=== PATIENT | male | born 1955 | race Caucasian/White ===

== ENCOUNTER 2017-10-11 15:24 | Inpatient (IN) | payer BC ==
[~2017-10-11] VITALS: Ht 180.3 cm; Wt 107.5 kg
[2017-10-11] VITALS (11 sets, daily range): BP systolic 137–224; BP diastolic 64–102; PULSE 60–80; RESP 16–20; TEMP 97.4–98.2; O2SAT 97–100
[~2017-10-11 15:24] MED LIST: HYDR-3366 PO; IBUP1TAB5 PO
[2017-10-11] MEDS ORDERED: SODIUM CHLORIDE 0.9% FLUSH 10 ML FLUSH IVF PRN (15:45)
[2017-10-11] MEDS ORDERED: HEPARIN SODIUM - IV 10,000 UNITS/10 ML VIAL IV ONE (16:15)
[2017-10-11] MEDS ORDERED: NITROGLYCERIN 0.4 MG SL 25 TABS/BTL SL ONE (16:15)
[2017-10-11] MEDS ORDERED: ASPIRIN 81 MG CHEW TAB CHEW ONE (16:15)
--- NOTE | 2017-10-11 16:24 | PD ---
HPI Chief Complaint: STEMI Alert Time Seen by Provider: 15:40 Travel History International Travel<30 days: No Contact w/Intl Traveler<30days: No Traveled to known affect area: No History of Present Illness HPI Patient 61-year-old male with a history of peripheral artery disease hypertension and previous smoking history presents emergency department for evaluation of chest heaviness and discomfort radiating to the back since about 0100 this morning. Patient states been having this intermittently over the past week, he states his been highly positional worsening when he lies down and better when he sits up, he states it started about a 0100 this morning and has not eased up. He states he had a stress test over a year ago which was negative. He is followed by another physician for peripheral artery disease and does have some chronic sciatica in his low back. Takes medication for high blood pressure. He denies any abdominal pain but does endorse some mild nausea , he tried some Benadryl at home that did not relieve his symptoms, also try some Pepcid without relief. PFSH Past Medical History Cancer: No Cardiovascular Problems: No High Cholesterol: Yes Diabetes: No Endocrine: Yes (LOW TESTOSTERONE) Genitourinary: No Hepatitis: No Hiatal Hernia: No Immune Disorder: No Musculoskeletal: No Neurologic: No Psychiatric: Yes (PTSD) Respiratory: No Thyroid Disease: No Past Surgical History Abdominal Surgery: No AICD: No Cardiac Surgery: No Ear Surgery: No Endocrine Surgery: Yes (broken left leg) Eye Surgery: No Genitourinary Surgery: No Gynecologic Surgery: No Joint Replacement: No Oral Surgery: No Pacemaker: No Thoracic Surgery: No Social History Alcohol Use: No Tobacco Use: Yes (1 2PPD) Substance Use: No Allergies-Medications (Allergen,Severity, Reaction): Coded Allergies: duloxetine (Unverified Allergy, Intermediate, hives, 06/07/17) Reported Meds & Prescriptions Reported Meds & Active Scripts Active Reported [place] (Hydrocodone-Acetaminophen) 10-325 Mg Tab 1 Tab PO Q6H PRN Ibuprofen 400 Mg Tab 400 Mg PO Q6H PRN Review of Systems Except as stated in HPI: all other systems reviewed are Neg Physical Exam Narrative GENERAL: Well-developed well-nourished, no obvious distress peer SKIN: Focused skin assessment warm/dry. HEAD: Atraumatic. Normocephalic. EYES: Pupils equal and round. No scleral icterus. No injection or drainage. ENT: No nasal bleeding or discharge. Mucous membranes pink and moist. NECK: Trachea midline. No JVD. CARDIOVASCULAR: Regular rate and rhythm. No murmur appreciated. 2+ bilateral equal pulses in all 4 extremities. RESPIRATORY: No accessory muscle use. Clear to auscultation. Breath sounds equal bilaterally. GASTROINTESTINAL: Abdomen soft, non-tender, nondistended. Hepatic and splenic margins not palpable. MUSCULOSKELETAL: No obvious deformities. No clubbing. No cyanosis. No edema. NEUROLOGICAL: Awake and alert. No obvious cranial nerve deficits. Motor grossly within normal limits. Normal speech. PSYCHIATRIC: Appropriate mood and affect; insight and judgment normal. Data Data Last Documented VS Vital Signs Date Time Temp Pulse Resp B/P (MAP) Pulse Ox O2 Delivery O2 Flow Rate FiO2 10/11/17 16:40 78 20 169/94 (119) 97 Nasal Cannula 2.00 10/11/17 15:30 97.4 Orders Orders Electrocardiogram (10/11/17 15:40) Ckmb (Isoenzyme) Profile (10/11/17 15:40) Complete Blood Count With Diff (10/11/17 15:40) Comprehensive Metabolic Panel (10/11/17 15:40) Magnesium (Mg) (10/11/17 15:40) Prothrombin Time / Inr (Pt) (10/11/17 15:40) Act Partial Throm Time (Ptt) (10/11/17 15:40) Troponin I (10/11/17 15:40) Chest, Single Ap (10/11/17 15:40) Ecg Monitoring (10/11/17 15:40) Iv Access Insert/Monitor (10/11/17 15:40) Oximetry (10/11/17 15:40) Oxygen Administration (10/11/17 15:40) Sodium Chloride 0.9% Flush (Ns Flush) (10/11/17 15:45) Aspirin Chew (Aspirin Chew) (10/11/17 16:15) Resp Oxygen Nasal Cannula (10/11/17 ) Heparin Inj (Heparin Inj) (10/11/17 16:15) Nitroglycerin Sl (Nitrostat Sl) (10/11/17 16:15) I-Stat Profile (10/11/17 15:40) Admit Order (Ed Use Only) (10/11/17 ) Nitroglycerin-D5w 50 Mg/250 Ml (Nitrogly (10/11/17 16:28) Cardiac Catheterization (10/11/17 ) Heparin-Ns/Pf Inj (Heparin-Ns/Pf Inj) (10/11/17 16:51) Midazolam Inj (Versed Inj) (10/11/17 16:51) Fentanyl Inj (Fentanyl Inj) (10/11/17 16:51) Heparin Inj (Heparin Inj) (10/11/17 16:51) Labs Laboratory Tests Test 10/11/17 16:09 White Blood Count 11.9 TH/MM3 Red Blood Count 5.74 MIL/MM3 Hemoglobin 16.6 GM/DL Bedside Hemoglobin 17.0 G/DL Hematocrit 48.8 % Bedside Hematocrit 50.0 % Mean Corpuscular Volume 85.1 FL Mean Corpuscular Hemoglobin 28.9 PG Mean Corpuscular Hemoglobin Concent 33.9 % Red Cell Distribution Width 15.4 % Platelet Count 231 TH/MM3 Mean Platelet Volume 8.6 FL Neutrophils (%) (Auto) 78.6 % Lymphocytes (%) (Auto) 12.3 % Monocytes (%) (Auto) 7.1 % Eosinophils (%) (Auto) 1.2 % Basophils (%) (Auto) 0.8 % Neutrophils # (Auto) 9.3 TH/MM3 Lymphocytes # (Auto) 1.5 TH/MM3 Monocytes # (Auto) 0.8 TH/MM3 Eosinophils # (Auto) 0.1 TH/MM3 Basophils # (Auto) 0.1 TH/MM3 CBC Comment DIFF FINAL Differential Comment Prothrombin Time 10.4 SEC Prothromb Time International Ratio 1.0 RATIO Activated Partial Thromboplast Time 27.1 SEC Bedside Sodium 135 MMOL/L Blood Urea Nitrogen 11 MG/DL Creatinine 1.03 MG/DL Random Glucose 178 MG/DL Total Protein 7.8 GM/DL Albumin 4.0 GM/DL Calcium Level 9.5 MG/DL Magnesium Level 2.3 MG/DL Alkaline Phosphatase 82 U/L Aspartate Amino Transf (AST/SGOT) 47 U/L Alanine Aminotransferase (ALT/SGPT) 70 U/L Total Bilirubin 0.8 MG/DL Sodium Level 135 MEQ/L Potassium Level 4.1 MEQ/L Chloride Level 97 MEQ/L Carbon Dioxide Level 27.5 MEQ/L Bedside Potassium 4.3 MMOL/L Bedside Chloride 97 MMOL/L Anion Gap 11 MEQ/L Bedside Blood Urea Nitrogen 11 MG/DL Bedside Creatinine 0.8 MG/DL Estimat Glomerular Filtration Rate 74 ML/MIN Bedside Glucose 183 MG/DL Total Creatine Kinase 83 U/L Troponin I 0.08 NG/ML [facility] Medical Decision Making Medical Screen Exam Complete: Yes Emergency Medical Condition: Yes Interpretation(s) EKG shows sinus rhythm with normal axis and normal R-wave progression. There are ST segment elevations at least 1 mm in 2 3 and aVF with reciprocal depression in leads V1 and V2 this is consistent with an acute STEMI, there is also some Q waves present in lead III which may represent a resolving [place]. Differential Diagnosis STEMI, and STEMI, ACS, [place], GERD, aortic dissection unlikely. Narrative Course Patient room to the emergency department, EKG was obtained and did show elevation in II ,III and aVF with reciprocal depression in leads V1 and V2 consistent with an inferior [place]. Q waves of artery begun to form in lead III is probable resolving [place] but does meet STEMI criteria. After I reviewed this EKG STEMI I saw the patient and states he was still having intense tightness in the middle of his test. Is not diaphoretic appears fairly comfortable. STEMI alert was called. 1525: Arrival to ER. 1601: Stemi Alert 1602: D/W Anthony->director geophysical laboratory 1603: laborer tanbark enroute. 1610: Ready to roll to director geophysical laboratory, awaiting cath team. 1628: Anthony at bedside. 1634: Patient excorted by me and RN team to director geophysical laboratory. 3 of 4 cath team members present. 1651: Cath team fully assembled. 1658: Anthony in director geophysical laboratory, patient handed off. Patient was given 325 milligrams of aspirin, 5000 units of heparin as is no immediately perceivable contraindications. Cautiously the patient was given sublingual nitroglycerin as this is an inferior [place] with the patient is extremely hypertensive, this seems to be easing his chest discomfort. Diagnosis Primary Impression: STEMI (ST elevation myocardial infarction) Qualified Codes: I21.3 - ST elevation (STEMI) myocardial infarction of unspecified site Admitting Information Admitting Physician Requests: Admit Condition: Ladarius Cruz MD October 11, 2017 16:24
[2017-10-11 16:26] LABS: AUTOMATED NEUTROPHIL # 9.3 TH/MM3 (1.8-7.7); BASOPHIL # 0.1 TH/MM3 (0-0.2); BASOPHIL % 0.8 % (0.0-2.0); EOSINOPHIL # 0.1 TH/MM3 (0-0.4); EOSINOPHIL % 1.2 % (0.0-4.0); HEMATOCRIT 48.8 % (39.0-51.0); HEMOGLOBIN 16.6 GM/DL (13.0-17.0); LYMPH % 12.3 % (9.0-44.0); LYMPHOCYTE # 1.5 TH/MM3 (1.0-4.8); MEAN CELL VOLUME 85.1 FL (80.0-100.0); MEAN CORPUSCULAR HEMOGLOBIN 28.9 PG (27.0-34.0); MEAN CORPUSCULAR HGB CONC 33.9 % (32.0-36.0); MEAN PLATELET VOLUME 8.6 FL (7.0-11.0); MONO % 7.1 % (0.0-8.0); MONOCYTE # 0.8 TH/MM3 (0-0.9); NEUT % 78.6 % (16.0-70.0); PLATELET COUNT 231 TH/MM3 (150-450); RED BLOOD COUNT 5.74 MIL/MM3 (4.50-5.90); RED CELL DISTRIBUTION WIDTH 15.4 % (11.6-17.2); WHITE BLOOD COUNT 11.9 TH/MM3 (4.0-11.0)
--- NOTE | 2017-10-11 16:27 | RADRPT ---
EXAM DATE: 10/11/2017 4:17 PM EDT AGE/SEX: 61 years / Male INDICATIONS: Stemi-alert. CLINICAL DATA: This is the patient's initial encounter. Patient reports that signs and symptoms have been present for 1 day and indicates a pain score of Nonresponsive. MEDICAL/SURGICAL HISTORY: . Unobtainable. . Unobtainable. COMPARISON: [facility] [place], 04/11/[place]. . FINDINGS: A single AP view of the chest demonstrates the lungs to be symmetrically aerated without evidence of mass, infiltrate or effusion. The cardiomediastinal contours are unremarkable. Osseous structures a re intact. CONCLUSION: No acute findings. Minimal basilar atelectasis. Electronically signed by: Austen Simmons MD 10/11/2017 4:26 PM EDT
[2017-10-11] MEDS ORDERED: NITROGLYCERIN-D5W 50 MG/250 ML 250 ML ONE (16:28)
[2017-10-11] MEDS ORDERED: IOHEXOL 350 MG/ML 50 ML BTL (for Cath Lab) OTHER ONE (16:33)
[2017-10-11 16:43] LABS: PROTHROMBIN TIME - PATIENT 10.4 SEC (9.8-11.6)
[2017-10-11 16:45] LABS: AST (GOT) 47 U/L (15-37); BICARBONATE 27.5 MEQ/L (21.0-32.0); BLOOD UREA NITROGEN 11 MG/DL (7-18); CALCIUM 9.5 MG/DL (8.5-10.1); CHLORIDE 97 MEQ/L (98-107); CREATININE 1.03 MG/DL (0.60-1.30); GLOMERULAR FILTRATION RATE 74 ML/MIN (>89); GLUCOSE,RANDOM 178 MG/DL (74-106); MAGNESIUM 2.3 MG/DL (1.5-2.5); SODIUM (NA) 135 MEQ/L (136-145)
[2017-10-11 16:46] LABS: ALT (GPT) 70 U/L (12-78)
[2017-10-11 16:49] LABS: ALKALINE PHOSPHATASE 82 U/L (45-117); TOTAL BILIRUBIN ADULT 0.8 MG/DL (0.2-1.0); TOTAL PROTEIN 7.8 GM/DL (6.4-8.2); TROPONIN I 0.08 NG/ML (0.02-0.05)
[2017-10-11] MEDS ORDERED: HEPARIN-NS/PF INJ 1,000 ML ONE ×2 (16:51→17:22)
[2017-10-11] MEDS ORDERED: MIDAZOLAM HCL 2 MG/2 ML VIAL ONE (16:51)
[2017-10-11] MEDS ORDERED: HEPARIN SODIUM - IV 10,000 UNITS/10 ML VIAL ONE (16:51)
[2017-10-11] MEDS ORDERED: TIROFIBAN INFUSION INJ 250 ML IV ONE (17:07)
[2017-10-11] MEDS ORDERED: CLOPIDOGREL 300 MG TAB ONE (17:08)
[2017-10-11] MEDS ORDERED: PRASUGREL 10 MG TAB ONE (17:12)
[2017-10-11] MEDS: TIROFIBAN INFUSION INJ 250 ML IV SCH (17:14)
[2017-10-11] MEDS ORDERED: NITROGLYCERIN-D5W 50 MG/250 ML 250 ML IV PRN (17:15)
[2017-10-11] MEDS ORDERED: SODIUM CHLORIDE 0.9% FLUSH 10 ML FLUSH IV FLUSH PRN ×2 (17:30→18:30)
[2017-10-11] MEDS ORDERED: BACITRACIN OINT 0.9 GM PKT TOP ONE (17:30)
[2017-10-11] MEDS ORDERED: PRASUGREL 10 MG TAB PO ONE (17:30)
[2017-10-11] MEDS ORDERED: MISC INFORMATION XX ONE (17:30)
--- NOTE | 2017-10-11 17:33 | CATHPROC ---
[employer] HIS Report Study Information Study Number Admission Scheduled Start Study Start [id number] Oct 11 2017 3:24PM 10/11/2017 Oct 11 2017 4:41PM [place] [facility] Cardiac Catheterization Admit Source Facility Department Emergency department [facility] - Painting Instructor Physician and Clinical Staff Initial Konstantin [employer] News Video Editor Marcie Lao,RN Television News Video Editor Divine Carmona,RN Recorder Raysa Camacho,RT(R) Scrub Teresa Scott,DYAN TECH2 Procedures Performed Procedure Location (Site) Vessel Name Coronary Angiograms LCA Left Coronary Coronary Angiograms RCA Right Coronary L Heart Cath Stent RCA Prox Right Coronary Wire insertion Fem Art (right) Femoral Art Equipment Time Mini Bar Attendant Description Size Mfg Part Number Used/Scraped [id number] 17:02 [employer] WIRE, ASAHI PROWATER 180CM 180CM Used *[id number] TRANSDUCER, TRUWAVE [id number] 16:59 m2fx * Used W/STOCKCOCK *[id number] *[id number] *[id number] *[id number] 16:59 MEDLINE INDUSTRIES PACK, CCL CUSTOM * Used *[id number] 16:59 MEDLINE PACER PEN, SKIN DUAL W/ RULER * Used *[id number] 17:04 [employer]IC STENT, 2.5 8 INTEGRITY 2.5 8 Used *[id number] 17:09 [employer]IC STENT, 2.5 8 INTEGRITY 2.5 8 Used *[id number] 17:10 [employer] MEDICAL 30 JERALD INDEFLATOR Used *[id number] 17:04 [employer] MEDICAL SHEATH, FR6.5 PRELUDE 11CM FR 6.5 038ACT Used *[id number] 16:59 [employer] MEDICAL WIRE, 3MMJ .035 180CM 180CM Used *[id number] 16:59 NAMIC MANIFOLD, 4 PORT * Used *[id number] 16:59 [employer] OMNIPAQUE, 350 MG, 150ML 150ML [id number] Used [id number] 16:59 [employer] MEDICAL BLANKET,WARM AIR CCL * Used *[id number] 16:59 [employer] MEDICAL SHEATH, FR4 TERUMO (10CM) FR 4 Used *[id number] Equipment Model, Serial, Lot Number and Expiration Data Description Model Number Serial Number Lot Number Expiration Date STENT, 2.5 8 INTEGRITY [id number] 11-16-2018 History: Current Medications Medication Dosage/Unit Route Frequency Last Date/Time Taken ASA History: Allergies Allergy Reaction Cymbalta hives duloxetine hives History: Stress Tests Stress or Imaging Studies Performed No History: Other Current Smoker Method Yes Cigarettes Labs Hgb (g/dl) Hct (%) 11.60-17.00 35.00-51.00 17.0 50 Glucose (mg/dl) BUN (mg/dl) Creatinine (mg/dl) BUN:Creatinine (1:x) 74.00-106.00 7.00-18.00 0.50-1.30 10.00-20.00 183 11 0.8 13.8 Na (meq/l) K (meq/l) 136.00-145.00 3.50-5.10 135 4.3 Medication Medication Total Dose (Bolus/Oral) Medication Total Dosage/Unit 1% XYLOCAINE 20 mL AGGRASTAT BOLUS 54 mL EFFIENT 60 mg FENTANYL 25 mcg HEPARIN 4000 units VERSED 1 mg Medications (Bolus/Oral) Medication Time Given Dosage/Unit Administered By Reason 1% XYLOCAINE 10/11/2017 4:57:23 PM 20 mL Konstantin Cruz 20 mL 1% XYLOCAINE given in lab by Konstantin Cruz in Right Groin via Subcutaneous. VERSED 10/11/2017 4:57:27 PM 1 mg Patient arrived on 1 mg VERSED via Peripheral IV. FENTANYL 10/11/2017 4:58:29 PM 25 mcg Marcie Lao 25 mcg FENTANYL given in lab by Marcie Lao RN via Peripheral IV. HEPARIN 10/11/2017 5:03:20 PM 2000 units Marcie Lao 2000 units HEPARIN given in lab by Marcie Lao, SON via Peripheral IV. EFFIENT 10/11/2017 5:14:23 PM 60 mg Marcie Lao 60 mg EFFIENT given in lab by Marcie Lao, SON via Oral. AGGRASTAT BOLUS 10/11/2017 5:14:57 PM 54 mL Marcie Lao 54 mL AGGRASTAT BOLUS given in lab by Marcie Lao, SON via Peripheral IV. HEPARIN 10/11/2017 5:16:45 PM 2000 units Marcie Lao 2000 units HEPARIN given in lab by Marcie Lao, SON via Peripheral IV. Medication (Drip) Medication Time Given Dosage/Unit Concentration/Unit Diluent (ml) Solution AGGRASTAT DRIP 10/11/2017 5:18:44 PM 0.148 mcg/kg/min 12.5 mg 250 NaCl .9 0.148 mcg/kg/min AGGRASTAT DRIP given in lab by Marcie Lao, SON via Peripheral IV. Pump/Drip Flow = 19.5 ml/hr using NaCl .9 with a concentration of 12.5 mg in 250 ml. IV Solutions 10/11/2017 4:50:00 PM 0 mL (IV) 500 NaCl .9 Patient arrived on IV Solutions via Peripheral IV. Pump/Drip Flow = 20 ml/hr using NaCl .9. NIPRIDE 10/11/2017 5:21:13 PM 200 mcg 200 mcg NIPRIDE given in lab by Marcie Lao, SON in Right Antecubital via Peripheral IV. NITROGLYCERIN DRIP 10/11/2017 4:49:11 PM 10 mcg/min 50 mg 250 D5W Patient arrived on 10 mcg/min NITROGLYCERIN DRIP in Right Wrist via Peripheral IV. Pump/Drip Flow = 3 ml/hr using D5W with a concentration of 50 mg in 250 ml. NITROGLYCERIN DRIP 10/11/2017 5:10:42 PM 30 mcg/min 50 mg 250 D5W 30 mcg/min NITROGLYCERIN DRIP given in lab by Marcie Lao RN via Peripheral IV. Pump/Drip Flow = 9 ml/hr using D5W with a concentration of 50 mg in 250 ml. Final Case Assessment Cardiovascular HR Rhythm NIBP Chest Pain 69 reg 165/84 5 Edema Present Skin color Skin None Normal Warm Circulatory - Right Pulses Dorsalis Pedis Femoral 1 2 Scale (0,1,2,3,4,d) Circulatory - Left Pulses Dorsalis Pedis Femoral 1 2 Scale (0,1,2,3,4,d) Circulatory - Lower Extremities Color Lower Right Color Lower Left Normal Normal Neurological State Oriented to time-place- Alert Moves all extremities person Respiration - General Respiration Rate SpO2 (%) O2 (lpm) (B/min) 22 97 3 Chronological Log Time Study Chronological Log 16:39:18 Patient arrived directly from ER without notice. 16:41:20 Patient Name, D.O.B, / Armband Verified By R.N. 16:41:20 Consent signed by the physician and the patient and verified by the Painting Instructor staff. 16:41:21 Pre-op and post- op instructions given; patient acknowledges understanding of instructions. 16:41:22 Verbal Stimulation=2 Physical Stimulation=2 Airway=2 Respiration=2 TOTAL=8. (0=absent, 1=li mited, 2=present) Vitals capture started with the following parameters, Patient=Adult, Interval=5 min, Initial Pr asmtng=010 mmHg, 16:46:54 Deflation Rate=5 mmHg, Cuff placed on Right Arm 16:46:58 Presedation assessment performed by Painting Instructor RN. 16:47:34 Patient has been NPO for Less than 6Hrs. 16:47:36 Skin Breakdown-None 16:47:39 HR=61 bpm, KQXU=987/102 mmhg, SpO2=96.0 %, Resp=8 B/min, Pain=10, Prerna=10, Reza=2 16:47:49 Patient Warmer Placed on the Table. 16:47:51 Disposable Defibrillator Pads Placed On Patient. 16:47:52 Luis Prominences Protected 16:47:59 A # 18 IV was noted in the Antecubital (right). Grade = 20 16:48:40 A # 20 IV was noted in the Hand (right). Grade = 0 Patient arrived on 10 mcg/min NITROGLYCERIN DRIP in Right Wrist via Peripheral IV. Pump/Drip Fl ow = 3 ml/hr using 16:49:11 D5W with a concentration of 50 mg in 250 ml. 16:50:00 Patient arrived on IV Solutions via Peripheral IV. Pump/Drip Flow = 20 ml/hr using NaCl .9. 16:53:23 HR=72 bpm, ASSS=587/102 mmhg, SpO2=96.0 %, Resp=10 B/min, Pain=10, Prerna=10, Reza=2 16:55:39 Pressure channel 1 zeroed. 16:56:33 Reference ECG taken 16:56:36 MD arrived. Time Out. Correct patient, correct procedure, correct physician, labs, allergies, and equipment verified with labor economist 16:56:39 team present. Fire risk assesment completed (see hard stop sheet for coding). Time Out Conc urred by MD and individual staff in procedure. 16:57:23 20 mL 1% XYLOCAINE given in lab by Konstantin Cruz in Right Groin via Subcutaneous. 16:57:27 Patient arrived on 1 mg VERSED via Peripheral IV. 16:57:30 Case Start 16:57:43 HR=65 bpm, QJPV=010/83 mmhg, SpO2=96.0 %, Resp=18 B/min, Pain=10, Prerna=10, Reza=2 16:58:29 25 mcg FENTANYL given in lab by Marcie Lao RN via Peripheral IV. 16:58:33 Access site was Right Femoral Artery. 16:58:38 A wire was inserted via Fem Art (right). 16:58:40 A SHEATH, FR4 TERUMO (10CM) FR 4 was advanced into the Fem Art (right) using the Percutaneo us technique. 16:59:03 Activated Clotting Time Drawn A JR 4.0 INFINITI CATHETER FR 4 was advanced over a wire. OMNIPAQUE, 350 MG, 150ML 150ML was us ed for 16:59:50 injections. Recorded Pressure: LV, HR=70, Condition=Condition 1 17:00:10 (Left Ventricle) LV 158/15/20 Recorded Pressure: LV, HR=71, Condition=Condition 1 17:00:17 (Left Ventricle) LV 156/20/23 Recorded Pressure: LV, Ao, HR=72, Condition=Condition 1 17:00:39 (Left Ventricle) LV 152/12/21, (Aorta) Ao 172/90/123 17:01:20 The RCA was injected and visualized at various angles. OMNIPAQUE, 350 MG, 150ML 150ML used . After removing the current catheter a JL 5.0 INFINITI CATHETER FR 4 was advanced over a WIRE, 3 MMJ .035 180CM 17:02:08 180CM. 17:02:41 ACT (Normal Range 90-180) = 192 17:02:42 HR=65 bpm, GWTS=474/88 mmhg, SpO2=94.0 %, Resp=19 B/min, Pain=10, Prerna=10, Reza=2 Recorded Pressure: Ao, HR=68, Condition=Condition 1 17:02:51 (Aorta) Ao 141/75/102 17:03:13 The LCA was injected and visualized at various angles. OMNIPAQUE, 350 MG, 150ML 150ML used . 17:03:20 2000 units HEPARIN given in lab by Marcie Lao RN via Peripheral IV. 17:03:55 Catheter was removed A SHEATH, FR6.5 PRELUDE 11CM FR 6.5 was exchanged in the Fem Art (right). This was necessary in order to 17:04:09 accomodate a larger catheter. A JR 4.0 GUIDE CATHETER FR 6 was advanced over a wire. OMNIPAQUE, 350 MG, 150ML 150ML was used for 17:04:29 injections. 17:06:29 A WIRE, ASAHI PROWATER 180CM 180CM was inserted via Fem Art (right). 17:07:43 HR=69 bpm, ZOWD=244/85 mmhg, SpO2=95.0 %, Resp=40 B/min, Pain=10, Prerna=10, Reza=2 17:08:12 Interventional wire has crossed the lesion An STENT, 2.5 8 INTEGRITY 2.5 8 Bare Metal Stent was inserted through a JR 4.0 GUIDE CATHETER F R 6 over a 17:09:23 WIRE, ASAHI PROWATER 180CM 180CM. A STENT, 2.5 8 INTEGRITY 2.5 8 was deployed using a 30 JERALD INDEFLATOR at 12 atmospheres for 28 seconds in the 17:09:57 RCA Prox. 17:10:18 Delivery device removed 17:10:25 The RCA was injected and visualized at various angles. OMNIPAQUE, 350 MG, 150ML 150ML used . 30 mcg/min NITROGLYCERIN DRIP given in lab by Marcie Lao, RN via Peripheral IV. Pump/Drip Flow = 9 ml/hr 17:10:42 using D5W with a concentration of 50 mg in 250 ml. 17:11:05 Catheter was removed 17:11:19 Activated Clotting Time Drawn 17:12:45 HR=70 bpm, RUBZ=559/84 mmhg, SpO2=95.0 %, Resp=27 B/min, Pain=5, Prerna=10, Reza=2 Assessment: Final Case, HR=69 BPM, Rhythm=reg, EUOY=753/84 mmhg, Chest Pain=5, Edema=None, [place] r=Normal, Skin = Warm Right Pulses: Adan Ped=1, Femoral=2 Left Pulses: Adan Ped=1, Femoral=2 17:13:03 Lower Right Extremities: Color=Normal Lower Left Extremities: Color=Normal Neurological: State=Alert, Ox3, KATZ Respiration: Resp=22 B/min, SpO2=97 %, O2=3 lpm 17:14:16 Catheter(s) removed without difficulty 17:14:18 In the Fem Art (right) the SHEATH, FR6.5 PRELUDE 11CM FR 6.[address] by Konstantin Guerrero. 17:14:23 60 mg EFFIENT given in lab by Marcie Lao, SON via Oral. 17:14:34 Case End 17:14:35 Sterile dressing applied to site 17:14:42 No case complications noted. 17:14:48 Cine recording checked. 17:14:49 Bedside Report will be given. 17:14:57 54 mL AGGRASTAT BOLUS given in lab by Marcie Lao, SON via Peripheral IV. 17:16:15 ACT (Normal Range 90-180) = 208 17:16:45 2000 units HEPARIN given in lab by Marcie Lao, SON via Peripheral IV. 17:17:44 HR=70 bpm, VHZJ=367/76 mmhg, SpO2=96.0 %, Resp=17 B/min, Pain=5, Prerna=10, Reza=2 17:17:56 Verbal Stimulation=2 Physical Stimulation=2 Airway=2 Respiration=2 TOTAL=8. (0=absent, 1=li mited, 2=present) 17:18:05 A Left Heart Cath was performed. 17:18:10 Clinical correlaton risk stratification. 0.148 mcg/kg/min AGGRASTAT DRIP given in lab by Marcie Lao, SON via Peripheral IV. Pump/Dri p Flow = 19.5 17:18:44 ml/hr using NaCl .9 with a concentration of 12.5 mg in 250 ml. 17:21:13 200 mcg NIPRIDE given in lab by Marcie Lao, RN in Right Antecubital via Peripheral IV. 17:22:39 HR=73 bpm, JVDH=296/61 mmhg, SpO2=95.0 %, Resp=16 B/min, Pain=10, Prerna=10, Reza=2 17:27:23 chest pain gone 17:27:33 HR=72 bpm, AWLT=157/87 mmhg, SpO2=93.0 %, Resp=19 B/min, Pain=0, Prerna=10, Reza=2 17:32:05 Vitals capture stopped. End Study - Contrast Media Used In Study Contrast Total Opened (mL) Total Used (mL) Total Wasted (mL) Omnipaque 40 40 0 End Study - Maximum Contrast Load Max Contrast Load (mL) 687.5 End Study - Radiation Exposure Fluoro Time (minutes) 2.5 End Study - Patient Disposition Complications Transferred To Interventional Outcome No Telemetry Bed successful
[2017-10-11] MEDS ORDERED: oxyCODONE/ACETAMINOPHEN 5 MG/325 MG TAB PO PRN (18:30)
[2017-10-11] MEDS ORDERED: SENNOSIDES 8.6 MG TAB PO PRN (18:30)
[2017-10-11] MEDS ORDERED: METOCLOPRAMIDE HCL 10 MG/2 ML VIAL IV PUSH PRN (18:30)
[2017-10-11] MEDS ORDERED: MAGNESIUM HYDROXIDE SUSP 30 ML CUP PO PRN (18:30)
[2017-10-11] MEDS ORDERED: ACETAMINOPHEN 325 MG TAB PO PRN ×2 (18:30)
[2017-10-11] MEDS ORDERED: NALOXONE HCL 0.4 MG/ML AMP IV PUSH PRN (18:30)
[2017-10-11] MEDS ORDERED: BISACODYL 10 MG SUPP RECTAL PRN (18:30)
[2017-10-11] MEDS ORDERED: LACTULOSE SYRUP 20 GM/30 ML CUP PO PRN (18:30)
--- NOTE | 2017-10-11 18:33 | PD.CONS ---
HPI Service [facility] Consult Requested By Dr. Konstantin Mccollum MD Reason for Consult Medical management post STEMI Primary Care Physician Brian Browning MD Diagnoses: History of Present Illness Patient is a 61-year-old male who presented to the emergency department with chest pain. Was found to have a ST elevation AR and was taken to the cardiac Manager Customer Service by Dr. Cruz had a bare-metal stent placed in his proximal RCA. We have now been asked to help with his medical management. Patient has a history of peripheral art arterial disease followed by Dr. Landon as well as cervical and lumbar disease followed by Dr. Felipe. Has chronic pain medications that are followed by Dr. Browning Review of Systems Constitutional: DENIES: Diaphoretic episodes, Fatigue, Fever, Weight gain, Weight loss, Chills, Dizziness, Change in appetite, Night Sweats Endocrine: DENIES: Heat/cold intolerance, Polydipsia, Polyuria, Polyphagia Eyes: DENIES: Blurred vision, Diplopia, Eye inflammation, Eye pain, Vision loss , Photosensitivity, Double Vision Ears, nose, mouth, throat: DENIES: Tinnitus, Hearing loss, Vertigo, Nasal discharge, Oral lesions, Throat pain, Hoarseness, Ear Pain, Running Nose Respiratory: DENIES: Apneas, Cough, Snoring, Wheezing, Hemoptysis, Sputum production, Shortness of breath Cardiovascular: COMPLAINS OF: Chest pain, Dyspnea on Exertion, Claudication, DENIES: Palpitations, Syncope, PND, Lower Extremity Edema, Orthopnea Gastrointestinal: DENIES: Abdominal pain, Black stools, Bloody stools, Constipation, Diarrhea, Nausea Genitourinary: DENIES: Sexual dysfunction, Urinary frequency, Urinary incontinence Musculoskeletal: COMPLAINS OF: Joint pain, Back pain, Neck pain, DENIES: Muscle aches, Stiffness, Joint Swelling Integumentary: DENIES: Abnormal pigmentation, Nail changes, Pruritus, Rash Hematologic/lymphatic: DENIES: Bruising, Lymphadenopathy Immunologic/allergic: DENIES: Eczema, Urticaria Neurologic: COMPLAINS OF: Abnormal gait, DENIES: Headache, Localized weakness, Paresthesias, Seizures, Speech Problems, Tremor, Poor Balance Psychiatric: DENIES: Anxiety, Confusion, Mood changes, Depression, Hallucinations, Agitation, Suicidal Ideation, Homicidal Ideation, Delusions Except as stated in HPI: all other systems reviewed are Neg Past Family Social History Allergies: Coded Allergies: duloxetine (Unverified Allergy, Intermediate, hives, 06/07/17) Past Medical History Chronic back pain and chronic neck pain Peripheral arterial disease in bilateral lower extremities followed by Dr. Landon History of extensive tobacco abuse quit in 2017 Hypertension Past Surgical History The cardiac catheterization and stent placement Reported Medications Reported Meds & Active Scripts Active Reported [place] (Hydrocodone-Acetaminophen) 10-325 Mg Tab 1 Tab PO Q6H PRN Ibuprofen 400 Mg Tab 400 Mg PO Q6H PRN Active Ordered Medications Current Medications Sodium Chloride (NS Flush) 2 ml UNSCH PRN IVF FLUSH AFTER USING IV ACCESS Last administered on 10/11/17 16:08; Start 10/11/17 at 15:45; Stop 10/11/17 at 17:32 ; Status DC Aspirin (Aspirin Chew) 324 mg ONCE ONCE CHEW Last administered on 10/11/17at 16 :07; Start 10/11/17 at 16:15; Stop 10/11/17 at 16:16; Status DC Heparin Sodium (Porcine) (Heparin Inj) 5,000 units ONCE ONCE IV Last administered on 10/11/17at 16:08; Start 10/11/17 at 16:15; Stop 10/11/17 at 16:16 ; Status DC Nitroglycerin (Nitrostat Sl) 0.4 mg ONCE ONCE SL Last administered on at 16:09; Start 10/11/17 at 16:15; Stop 10/11/17 at 16:16; Status DC Nitroglycerin/ Dextrose 250 ml @ As Directed STK-MED ONCE .ROUTE ; Start at 16:28; Stop 10/11/17 at 16:29; Status DC Heparin Sodium/ Sodium Chloride 1,000 ml @ As Directed STK-MED ONCE .ROUTE Last administered on 10/11/17at 16:51; Start 10/11/17 at 16:51; Stop 10/11/17 at 16:52; Status DC Midazolam HCl (Versed Inj) 2 mg STK-MED ONCE .ROUTE Last administered on at 16:57; Start 10/11/17 at 16:51; Stop 10/11/17 at 16:52; Status DC Fentanyl Citrate (fentaNYL INJ) 100 mcg STK-MED ONCE .ROUTE Last administered on 10/11/17at 16:51; Start 10/11/17 at 16:51; Stop 10/11/17 at 16:52; Status DC Heparin Sodium (Porcine) (Heparin Inj) 10,000 units STK-MED ONCE .ROUTE Last administered on 10/11/17at 16:51; Start 10/11/17 at 16:51; Stop 10/11/17 at 16:52 ; Status DC Tirofiban/Sodium Chloride 250 ml @ As Directed STK-MED ONCE IV ; Start at 17:07; Stop 10/11/17 at 17:08; Status DC Clopidogrel Bisulfate (Plavix) 600 mg STK-MED ONCE .ROUTE ; Start 10/11/17 at 17 :08; Stop 10/11/17 at 17:09; Status DC Prasugrel (Effient) 60 mg STK-MED ONCE .ROUTE ; Start 10/11/17 at 17:12; Stop at 17:13; Status DC Nitroglycerin/ Dextrose 250 ml @ 1.5 mls/hr TITRATE PRN IV Chest pain relief Last administered on 10/11/17at 17:17; Start 10/11/17 at 17:15 Heparin Sodium/ Sodium Chloride 1,000 ml @ As Directed STK-MED ONCE .ROUTE ; Start 10/11/17 at 17:22; Stop 10/11/17 at 17:23; Status DC Sodium Chloride (NS Flush) 2 ml UNSCH PRN IV FLUSH FLUSH AFTER USING IV ACCESS ; Start 10/11/17 at 17:30 Sodium Chloride (NS Flush) 2 ml BID IV FLUSH ; Start 10/11/17 at 21:00 Aspirin (Aspirin Chew) 162 mg DAILY PO ; Start 10/12/17 at 09:00 Prasugrel (Effient) 60 mg ONCE ONCE PO Last administered on 10/11/17at 17:14; Start 10/11/17 at 17:30; Stop 10/11/17 at 17:31; Status DC Prasugrel (Effient) 10 mg DAILY PO ; Start 10/12/17 at 09:00 Tirofiban/Sodium Chloride 250 ml @ 19.8 mls/hr [id number] IV Last administered on 10/11/17at 17:14; Start 10/11/17 at 17:20; Stop 10/12/17 at 11:19 Miscellaneous Information 1 ONCE ONCE XX ; Start 10/11/17 at 17:30; Stop at 17:32; Status DC Bacitracin (Bacitracin Oint Packet) 0.9 gm ONCE ONCE TOP ; Start 10/11/17 at 17 :30; Stop 10/11/17 at 17:31; Status DC Carvedilol (Coreg) 3.125 mg BID PO ; Start 10/11/17 at 21:00 Ramipril (Altace) 2.5 mg DAILY PO ; Start 10/12/17 at 09:00 Atorvastatin Calcium (Lipitor) 10 mg HS PO ; Start 10/11/17 at 21:00 Family History Heart disease in his mother and cancers in his father and brother Social History Former smoker quit in 2017 Denies any alcohol abuse or illicit drug use Has chronic pain medications that he takes Physical Exam Vital Signs Vital Signs Date Time Temp Pulse Resp B/P (MAP) Pulse Ox O2 Delivery O2 Flow Rate FiO2 10/11/17 17:17 76 134/72 10/11/17 16:40 78 20 169/94 (119) 97 Nasal Cannula 2.00 10/11/17 16:35 10/11/17 16:27 76 137/64 (88) 97 Nasal Cannula 2.00 10/11/17 16:22 60 10/11/17 16:11 80 19 194/95 (128) 98 Nasal Cannula 2.00 10/11/17 16:10 98 Nasal Cannula 2.00 10/11/17 16:07 98 Nasal Cannula 3.00 10/11/17 15:30 97.4 72 16 224/102 (142) 99 Physical Exam GENERAL: This is a well-nourished, well-developed patient, in no apparent distress. Patient is seen post cardiac catheterization with sheath still in place in right groin SKIN: No rashes, ecchymoses or lesions. Cool and dry. HEAD: Atraumatic. Normocephalic. No temporal or scalp tenderness. EYES: Pupils equal round and reactive. Extraocular motions intact. No scleral icterus. No injection or drainage. ENT: Nose without bleeding, purulent drainage or septal hematoma. Throat without erythema, tonsillar hypertrophy or exudate. Uvula midline. Airway patent. NECK: Trachea midline. No JVD or lymphadenopathy. Supple, nontender, no meningeal signs. CARDIOVASCULAR: Regular rate and rhythm without murmurs, gallops, or rubs. S1- S2 no S3 or S4 RESPIRATORY: Clear to auscultation. Breath sounds equal bilaterally. No wheezes , rales, or rhonchi. GASTROINTESTINAL: Abdomen soft, non-tender, nondistended. No hepato-splenomegaly , or palpable masses. No guarding. MUSCULOSKELETAL: Extremities without clubbing, cyanosis, or edema. No joint tenderness, effusion, or edema noted. No calf tenderness. Negative Homans sign bilaterally. NEUROLOGICAL: Awake and alert. Cranial nerves II through XII intact. Motor and sensory grossly within normal limits. Five out of 5 muscle strength in all muscle groups. Normal speech. Insight and judgment is good Mood and behavior is appropriate Laboratory Laboratory Tests Test 10/11/17 16:09 White Blood Count 11.9 Red Blood Count 5.74 Hemoglobin 16.6 Bedside Hemoglobin 17.0 Hematocrit 48.8 Bedside Hematocrit 50.0 Mean Corpuscular Volume 85.1 Mean Corpuscular Hemoglobin 28.9 Mean Corpuscular Hemoglobin Concent 33.9 Red Cell Distribution Width 15.4 Platelet Count 231 Mean Platelet Volume 8.6 Neutrophils (%) (Auto) 78.6 Lymphocytes (%) (Auto) 12.3 Monocytes (%) (Auto) 7.1 Eosinophils (%) (Auto) 1.2 Basophils (%) (Auto) 0.8 Neutrophils # (Auto) 9.3 Lymphocytes # (Auto) 1.5 Monocytes # (Auto) 0.8 Eosinophils # (Auto) 0.1 Basophils # (Auto) 0.1 CBC Comment DIFF FINAL Differential Comment Prothrombin Time 10.4 Prothromb Time International Ratio 1.0 Activated Partial Thromboplast Time 27.1 Bedside Sodium 135 Blood Urea Nitrogen 11 Creatinine 1.03 Random Glucose 178 Total Protein 7.8 Albumin 4.0 Calcium Level 9.5 Magnesium Level 2.3 Alkaline Phosphatase 82 Aspartate Amino Transf (AST/SGOT) 47 Alanine Aminotransferase (ALT/SGPT) 70 Total Bilirubin 0.8 Sodium Level 135 Potassium Level 4.1 Chloride Level 97 Carbon Dioxide Level 27.5 Bedside Potassium 4.3 Bedside Chloride 97 Anion Gap 11 Bedside Blood Urea Nitrogen 11 Bedside Creatinine 0.8 Estimat Glomerular Filtration Rate 74 Bedside Glucose 183 Total Creatine Kinase 83 Troponin I 0.08 Result Diagram: 10/11/17 1609 10/11/17 1609 Imaging Last Impressions Chest X-Ray 10/11/17 1540 Signed Impressions: CONCLUSION: No acute findings. Minimal basilar atelectasis. Assessment and Plan Problem List: (1) STEMI (ST elevation myocardial infarction) ICD Code: I21.3 - ST elevation (STEMI) myocardial infarction of unspecified site Status: Acute (2) PAD (peripheral artery disease) ICD Code: I73.9 - Peripheral vascular disease, unspecified (3) PTSD (post-traumatic stress disorder) ICD Code: F43.10 - Post-traumatic stress disorder, unspecified (4) Chronic pain ICD Code: G89.29 - Other chronic pain (5) Tobacco abuse ICD Code: Z72.0 - Tobacco use (6) Hypercholesterolemia ICD Code: E78.00 - Pure hypercholesterolemia, unspecified (7) Hypertension ICD Code: I10 - Essential (primary) hypertension Assessment and Plan ST elevation AR status post emergent cardiac catheterization by Dr. Konstantin Cruz with bare-metal stent placed in the proximal right coronary artery-- continue on statin, aspirin, beta-eusebio, ZAINA inhibitor and PRASUGREL Coronary artery disease has been loaded with Plavix and will be started on prasugrel AND ASPIRIN History of extensive tobacco abuse Hyperlipidemia continue on chronic statin Hypertension continue on beta-blockers Has been started on ZAINA inhibitor And aspirin Peripheral vascular arterial disease is followed by Dr. Landon will need to be on chronic anticoagulation for this Tobacco abuse recommend continued cessation of all tobacco and nicotine products A.m. labs Chronic pain we will continue on pain medications and have morphine available History of left leg broken History of PTSD resume home medication- ONCE AVAILABLE OBTAIN HOME MEDICATIONS Code Status Full code Discussed Condition With Patient and and RNs and emergency room physician Problem Qualifiers (1) STEMI (ST elevation myocardial infarction): Qualified Codes: I21.3 - ST elevation (STEMI) myocardial infarction of unspecified site Gabriele Young DO October 11, 2017 18:33
[2017-10-11] MEDS ORDERED: PANTOPRAZOLE SOD 40 MG DELAYED RELEASE TAB PO ONE (18:45)
[2017-10-11] MEDS ORDERED: ONDANSETRON ODT 4 MG TAB PO PRN (18:45)
[2017-10-11] MEDS ORDERED: MORPHINE SULFATE 4 MG/ML INJ IV PUSH PRN (18:45)
[2017-10-11] MEDS: oxyCODONE/ACETAMINOPHEN 10 MG/325 MG TAB PO PRN (19:11)
--- NOTE | 2017-10-11 19:22 | MB ---
cc: Konstantin Cruz MD DATE: 10/11/2017 HISTORY OF PRESENT ILLNESS: This is a very pleasant 61-year-old gentleman with history of tobacco use, peripheral vascular disease, hypertension, who has been having chest pain that began at 1:00 a.m. this morning, radiating to the back. It has been occurring intermittently over the past week prior to admission, worse when he lies down, improved when he sits up. Otherwise, denies any fever, chills, cough, GI/ bleeding, PND, orthopnea, syncope or dizziness. PAST MEDICAL HISTORY: Includes sciatica, hyperlipidemia, low testosterone, PTSD, history of broken left leg. SOCIAL HISTORY: Smokes a pack and a half of cigarettes a day. Denies alcohol use. ALLERGIES: DULOXETINE. MEDICATIONS PRIOR TO ADMISSION: 1. [place]. 2. Ibuprofen. MEDICATIONS GIVEN IN THE EMERGENCY ROOM: Aspirin, heparin bolus and drip ____ sublingual nitroglycerin. PHYSICAL EXAMINATION: VITAL SIGNS: Initially blood pressure 224/102, pulse 72, temperature 97.4, respiratory rate 16, current blood pressure is 137/64, pulse 76, sats 97% on 2 liters nasal cannula. GENERAL: He is alert and oriented x 3, in no acute distress. NECK: Supple. No JVD. No bruit. CARDIOVASCULAR: S1, S2. No murmurs, rubs or gallops. LUNGS: Clear to auscultation bilaterally. ABDOMEN: Soft, nontender, nondistended, with positive bowel sounds. EXTREMITIES: No lower extremity edema. LABORATORY DATA: Chest x-ray shows no acute findings, minimal basilar atelectasis. STUDY: EKG is not in the computer, but I did see it in the ER, does show inferior injury pattern, with also posterior injury pattern as well, in sinus rhythm. LABORATORY DATA: White count 11.9, hemoglobin 16.6, hematocrit 48.8, platelet count 231. INR is pending. Creatinine is 0.8, glucose 183. Sodium 135. HE HAS THE FOLLOWING DIAGNOSES: 1. ST-elevation myocardial infarction. 2. Hyponatremia. 3. Hyperglycemia. 4. Tobacco abuse. 5. Elevated white count. 6. Peripheral vascular disease. 7. Sciatica. DISCUSSION: A STEMI alert has been called by Dr. Friedman. Agree with aspirin and heparin. If the patient is still having chest pain, we will add IV nitro. Further recommendations based on the details of his coronary anatomy on heart catheterization now. MD LIZA Goodwin/SWETA/kavita , 04:45 PM , 05:37 PM
[2017-10-11] MEDS: SODIUM CHLOR 0.9% 1000 ML INJ 1,000 ML IV SCH (20:04)
[2017-10-11] MEDS: DOCUSATE SODIUM 50 MG/SENNA 8.6 MG TAB PO SCH (21:00)
[2017-10-11] MEDS ORDERED: SODIUM CHLORIDE 0.9% FLUSH 10 ML FLUSH IV FLUSH SCH (21:00)
[2017-10-11] MEDS: CARVEDILOL 3.125 MG TAB PO SCH (21:46)
[2017-10-11] MEDS: SODIUM CHLORIDE 0.9% FLUSH 10 ML FLUSH IV FLUSH SCH (21:46)
[2017-10-11] MEDS: ATORVASTATIN 10 MG TAB PO SCH (21:46)
[2017-10-11 22:00] LABS: TROPONIN I 3.15 NG/ML (0.02-0.05)
--- NOTE | 2017-10-11 22:39 | MR ---
cc: Konstantin Cruz MD DATE: 10/11/2017 PROCEDURES: Left heart catheterization, left ventriculography, coronary angiography. INDICATIONS FOR PROCEDURE: STEMI, coronary artery disease, peripheral vascular disease, tobacco use. He is [place] Cardiovascular Society class IV angina, multiple cardiac risk factors. PROCEDURAL STATEMENT: The patient was brought to the cardiac catheterization laboratory, prepped and draped in the usual sterile fashion. 10 mL of 1% lidocaine was used to locally anesthetize the right common femoral artery. A 4-Colombian sheath placed in right common femoral artery. 4-Colombian JR4 and JL4 catheters were used to perform left and right coronary angiography and left heart ventriculography. FINDINGS: LV pressure is 150/11-17. The ejection fraction is 50% to 55%. The posterior wall/inferior wall were mild to moderately hypokinetic. Right coronary artery is dominant, has diffuse disease. The reference vessel diameter at the ostium is probably 3.5 mm. Vessel abruptly tapers to 2.5. It is difficult to tell how much of this is normal vessel tapering versus diffuse plaque. Nevertheless, there appears to be a culprit lesion in the proximal segment, 95%. The vessel is very tortuous at this point. Just beyond this segment, there is a 90% bend, followed by a secondary 90% bend, with disease at the 50% on the secondary 90% bend. The distal vessel, reference vessel diameter is probably 3 mm. There is no obvious significant disease in the right PDA or right RAUDEL. The left main coronary artery has no significant disease angiographically. The left circumflex vessel has mild to moderate diffuse disease in the AV groove, proximal mid segment up to 30% to 40% angiographically. There is a large ramus intermedius vessel, which has an ostial 60% stenosis. There is a high obtuse marginal vessel, which is also a medium sized vessel with ostial 60% to 70% stenosis. There is distal obtuse marginal vessel, which is a 1.5-2 mm reference vessel diameter. No significant disease angiographically. The LAD is nontransapical and has a 70% stenosis with a large first diagonal artery, which itself is larger than the mid to distal LAD. Mid to distal LAD has a reference vessel diameter at 2.5 mm tapering to 1 mm within about 20 mm of length. The first diagonal artery is at least a 3 mm reference vessel diameter with an ostial 40% stenosis and a mid 70% stenosis. Initial ACT was 202. Additional 2000 units of heparin was given. Second ACT 208. Additional 2000 units of heparin was given. Final ACT pending at the time of dictation. A 6-Colombian sheath was exchanged for a 4-Colombian sheath, 6-Colombian JR4 0.014 [place] guidewire and a 2.5, 8 mm Integrity stent. We restent the proximal mid right coronary artery, ____ inflations all 12 atmospheres for 20 seconds. This did reproduce the patient's chest pain, stenosis went from 90% to 0% with ABNER-3 flow. CONCLUSION: 1. STEMI, culprit 90% proximal mid right coronary stenosis as detailed above. 2. Otherwise, moderate to severe 3-vessel coronary artery disease in right dominant system as detailed above. 3. Preserved left ventricular systolic function, EF 50% to 55%, with mild to moderate hypokinesis of the posterior wall and mid inferior wall. 4. Successful direct PCI bare metal stent of the proximal mid right coronary artery from 90% to 0% with ABNER-3 flow. 5. Recommend Effient 60 mg p.o. load, then 10 mg daily for 12-15 months, aspirin 162 mg daily for indefinitely. Aggrastat drip per protocol. We will check fasting lipids, ____ CK ____ guidelines. We will also start Coreg and Altace. I have strongly advised the patient to discontinue tobacco use and we have reviewed the films with the patient in the catheterization lab. MD LIZA Goodwin/SWETA/iván , 05:19 PM , 07:12 PM
[2017-10-12] VITALS (26 sets, daily range): BP systolic 91–155; BP diastolic 51–75; PULSE 60–98; RESP 16–20; TEMP 98–99.1; O2SAT 93–100
[2017-10-12] MEDS: oxyCODONE/ACETAMINOPHEN 10 MG/325 MG TAB PO PRN ×4 (00:43→20:34)
[2017-10-12 02:50] LABS: AUTOMATED NEUTROPHIL # 8.4 TH/MM3 (1.8-7.7); BASOPHIL # 0.1 TH/MM3 (0-0.2); BASOPHIL % 0.7 % (0.0-2.0); EOSINOPHIL # 0.2 TH/MM3 (0-0.4); EOSINOPHIL % 1.7 % (0.0-4.0); HEMATOCRIT 43.8 % (39.0-51.0); HEMOGLOBIN 14.7 GM/DL (13.0-17.0); LYMPH % 18.7 % (9.0-44.0); LYMPHOCYTE # 2.3 TH/MM3 (1.0-4.8); MEAN CORPUSCULAR HEMOGLOBIN 28.3 PG (27.0-34.0); MEAN CORPUSCULAR HGB CONC 33.6 % (32.0-36.0); MEAN PLATELET VOLUME 8.7 FL (7.0-11.0); MONO % 10.2 % (0.0-8.0); MONOCYTE # 1.2 TH/MM3 (0-0.9); NEUT % 68.7 % (16.0-70.0); PLATELET COUNT 246 TH/MM3 (150-450); RED BLOOD COUNT 5.21 MIL/MM3 (4.50-5.90); RED CELL DISTRIBUTION WIDTH 15.3 % (11.6-17.2); WHITE BLOOD COUNT 12.2 TH/MM3 (4.0-11.0)
[2017-10-12] MEDS: TIROFIBAN INFUSION INJ 250 ML IV SCH (02:55)
[2017-10-12 02:59] LABS: PROTHROMBIN TIME - PATIENT 10.4 SEC (9.8-11.6)
[2017-10-12] MEDS: MORPHINE SULFATE 4 MG/ML INJ IV PUSH PRN ×6 (03:06→22:10)
[2017-10-12 03:42] LABS: ALBUMIN 3.4 GM/DL (3.4-5.0); ALKALINE PHOSPHATASE 64 U/L (45-117); ALT (GPT) 69 U/L (12-78); AST (GOT) 167 U/L (15-37); BICARBONATE 28.4 MEQ/L (21.0-32.0); CALCIUM 8.6 MG/DL (8.5-10.1); CHOLESTEROL/ HDL RATIO 5.28 RATIO; CREATININE 0.93 MG/DL (0.60-1.30); DIRECT BILIRUBIN ADULT 0.1 MG/DL (0.0-0.2); FREE T4 0.96 NG/DL (0.76-1.46); HDL CHOLESTEROL 38.8 MG/DL (40.0-60.0); INDIRECT BILIRUBIN 0.5 MG/DL (0.0-0.8); MAGNESIUM 2.4 MG/DL (1.5-2.5); PHOSPHORUS 3.4 MG/DL (2.5-4.9); TOTAL BILIRUBIN ADULT 0.6 MG/DL (0.2-1.0); TOTAL PROTEIN 6.7 GM/DL (6.4-8.2)
[2017-10-12 03:46] LABS: TROPONIN I 18.3 NG/ML (0.02-0.05)
[2017-10-12] MEDS: SODIUM CHLOR 0.9% 1000 ML INJ 1,000 ML IV SCH (05:14)
[2017-10-12] MEDS: RAMIPRIL 2.5 MG CAP PO SCH (07:58)
[2017-10-12] MEDS: PRASUGREL 10 MG TAB PO SCH (07:58)
[2017-10-12] MEDS: ASPIRIN 81 MG CHEW TAB PO SCH (07:58)
[2017-10-12] MEDS: SODIUM CHLORIDE 0.9% FLUSH 10 ML FLUSH IV FLUSH SCH ×2 (07:59→20:33)
[2017-10-12] MEDS: CARVEDILOL 3.125 MG TAB PO SCH ×2 (07:59→20:33)
[2017-10-12] MEDS: DOCUSATE SODIUM 50 MG/SENNA 8.6 MG TAB PO SCH ×2 (07:59→20:34)
--- NOTE | 2017-10-12 09:55 | HHI.PR ---
Subjective Remarks Patient is a 61-year-old male who presented to the emergency department with chest pain. Was found to have a ST elevation [place] and was taken to the cardiac Pit [facility]vel Operator by Dr. Cruz had a bare-metal stent placed in his proximal RCA. We have now been asked to help with his medical management. Patient has a history of peripheral art arterial disease followed by Dr. Landon as well as cervical and lumbar disease followed by Dr. Felipe. Has chronic pain medications that are followed by Dr. Browning 10-12 adjust meds dc iv fluids dw RN AND PT STILL HAVING BACK PAIN AND PAIN BUT THIS IS A CHRONIC CONDITION STOP IV FLUIDS AM LABS IF NOT DCED TODAY Await cardiac clearance discharge next 24-48 hour HAS ELEVATED TRIGLYCERIDES TROPONINS ARE STILL TRENDING UP DC IS ON HOLD FOR TODAY Objective Vitals Vital Signs Date Time Temp Pulse Resp B/P (MAP) Pulse Ox O2 Delivery O2 Flow Rate FiO2 10/12/17 09:06 97 21 10/12/17 09:00 78 10/12/17 08:00 76 10/12/17 07:00 98.1 90 20 155/75 (101) 100 10/12/17 07:00 80 10/12/17 06:00 66 10/12/17 05:00 79 10/12/17 04:00 60 10/12/17 03:00 62 10/12/17 03:00 98.0 69 16 154/74 (100) 98 10/12/17 02:00 63 10/12/17 01:00 67 10/12/17 00:00 68 10/12/17 00:00 98.3 68 16 146/72 (96) 98 10/11/17 23:00 72 10/11/17 22:00 72 10/11/17 21:00 72 10/11/17 20:00 98.2 64 16 140/67 (91) 100 10/11/17 20:00 60 10/11/17 19:00 66 10/11/17 18:00 98.1 65 17 167/81 (109) 100 10/11/17 17:17 76 134/72 10/11/17 16:40 78 20 169/94 (119) 97 Nasal Cannula 2.00 10/11/17 16:35 10/11/17 16:27 76 137/64 (88) 97 Nasal Cannula 2.00 10/11/17 16:22 60 10/11/17 16:11 80 19 194/95 (128) 98 Nasal Cannula 2.00 10/11/17 16:10 98 Nasal Cannula 2.00 10/11/17 16:07 98 Nasal Cannula 3.00 10/11/17 15:30 97.4 72 16 224/102 (142) 99 I/O 10/11/17 10/11/17 10/11/17 10/12/17 10/12/17 10/12/17 07:00 15:00 23:00 07:00 15:00 23:00 Intake Total 480 ml Output Total 1800 ml Balance -1320 ml Intake Oral 480 ml Output Urine Total 1800 ml # Bowel Movements 0 Result Diagram: 10/12/174 10/12/174 Other Results Laboratory Tests Test 10/11/17 16:09 10/11/17 20:20 10/12/17 02:24 White Blood Count 11.9 TH/MM3 12.2 TH/MM3 Red Blood Count 5.74 MIL/MM3 5.21 MIL/MM3 Hemoglobin 16.6 GM/DL 14.7 GM/DL Bedside Hemoglobin 17.0 G/DL Hematocrit 48.8 % 43.8 % Bedside Hematocrit 50.0 % Mean Corpuscular Volume 85.1 FL 84.0 FL Mean Corpuscular Hemoglobin 28.9 PG 28.3 PG Mean Corpuscular Hemoglobin Concent 33.9 % 33.6 % Red Cell Distribution Width 15.4 % 15.3 % Platelet Count 231 TH/MM3 246 TH/MM3 Mean Platelet Volume 8.6 FL 8.7 FL Neutrophils (%) (Auto) 78.6 % 68.7 % Lymphocytes (%) (Auto) 12.3 % 18.7 % Monocytes (%) (Auto) 7.1 % 10.2 % Eosinophils (%) (Auto) 1.2 % 1.7 % Basophils (%) (Auto) 0.8 % 0.7 % Neutrophils # (Auto) 9.3 TH/MM3 8.4 TH/MM3 Lymphocytes # (Auto) 1.5 TH/MM3 2.3 TH/MM3 Monocytes # (Auto) 0.8 TH/MM3 1.2 TH/MM3 Eosinophils # (Auto) 0.1 TH/MM3 0.2 TH/MM3 Basophils # (Auto) 0.1 TH/MM3 0.1 TH/MM3 CBC Comment DIFF FINAL DIFF FINAL Differential Comment Prothrombin Time 10.4 SEC 10.4 SEC Prothromb Time International Ratio 1.0 RATIO 1.0 RATIO Activated Partial Thromboplast Time 27.1 SEC Bedside Sodium 135 MMOL/L Blood Urea Nitrogen 11 MG/DL 9 MG/DL Creatinine 1.03 MG/DL 0.93 MG/DL Random Glucose 178 MG/DL 125 MG/DL Total Protein 7.8 GM/DL 6.7 GM/DL Albumin 4.0 GM/DL 3.4 GM/DL Calcium Level 9.5 MG/DL 8.6 MG/DL Magnesium Level 2.3 MG/DL 2.4 MG/DL Alkaline Phosphatase 82 U/L 64 U/L Aspartate Amino Transf (AST/SGOT) 47 U/L 167 U/L Alanine Aminotransferase (ALT/SGPT) 70 U/L 69 U/L Total Bilirubin 0.8 MG/DL 0.6 MG/DL Sodium Level 135 MEQ/L 138 MEQ/L Potassium Level 4.1 MEQ/L 4.1 MEQ/L Chloride Level 97 MEQ/L 100 MEQ/L Carbon Dioxide Level 27.5 MEQ/L 28.4 MEQ/L Bedside Potassium 4.3 MMOL/L Bedside Chloride 97 MMOL/L Anion Gap 11 MEQ/L 10 MEQ/L Bedside Blood Urea Nitrogen 11 MG/DL Bedside Creatinine 0.8 MG/DL Estimat Glomerular Filtration Rate 74 ML/MIN 83 ML/MIN Bedside Glucose 183 MG/DL Total Creatine Kinase 83 U/L 555 U/L 1313 U/L Troponin I 0.08 NG/ML 3.15 NG/ML 18.30 NG/ML Creatine Kinase MB 42.4 NG/ML 126.0 NG/ML Creatine Kinase MB % 7.6 % 9.6 % Phosphorus Level 3.4 MG/DL Direct Bilirubin 0.1 MG/DL Indirect Bilirubin 0.5 MG/DL Triglycerides Level 602 MG/DL Cholesterol Level 205 MG/DL LDL Cholesterol MG/DL HDL Cholesterol 38.8 MG/DL Cholesterol/HDL Ratio 5.28 RATIO Free Thyroxine 0.96 NG/DL Thyroid Stimulating Hormone 3rd Gen 1.030 uIU/ML Imaging Last Impressions Chest X-Ray 10/11/17 1540 Signed Impressions: CONCLUSION: No acute findings. Minimal basilar atelectasis. Objective Remarks GENERAL: Awake alert and oriented talkative and cooperative appears to have some chronic back pain that is bothering him improved with morphine and Percocet SKIN: Warm and dry. Right groin is stable HEAD: Atraumatic. Normocephalic. EYES: Pupils equal and round. No scleral icterus. No injection or drainage. Extraocular muscles intact ENT: No nasal bleeding or discharge. Mucous membranes pink and moist. Tongue is midline NECK: Trachea midline. No JVD. Supple CARDIOVASCULAR: Regular rate and rhythm. S1-S2 no S3 or S4 no heave or thrill or rub or gallop RESPIRATORY: No accessory muscle use. Clear to auscultation. Breath sounds equal bilaterally. GASTROINTESTINAL: Abdomen soft, non-tender, nondistended. Hepatic and splenic margins not palpable. MUSCULOSKELETAL: Extremities without clubbing, cyanosis, or edema. No obvious deformities. Right groin is stable NEUROLOGICAL: Awake and alert. No obvious cranial nerve deficits. Motor grossly within normal limits. Five out of 5 muscle strength in the arms and legs. Normal speech. PSYCHIATRIC: Appropriate mood and affect; insight and judgment normal. Procedures ST elevation WI and was taken to the cardiac Pit Shovel Operator by Dr. Cruz had a bare -metal stent placed in his proximal RCA Medications and IVs Current Medications Sodium Chloride (NS Flush) 2 ml UNSCH PRN IVF FLUSH AFTER USING IV ACCESS Last administered on 10/11/17at 16:08; Start 10/11/17 at 15:45; Stop 10/11/17 at 17:32 ; Status DC Aspirin (Aspirin Chew) 324 mg ONCE ONCE CHEW Last administered on 10/11/17at 16 :07; Start 10/11/17 at 16:15; Stop 10/11/17 at 16:16; Status DC Heparin Sodium (Porcine) (Heparin Inj) 5,000 units ONCE ONCE IV Last administered on 10/11/17at 16:08; Start 10/11/17 at 16:15; Stop 10/11/17 at 16:16 ; Status DC Nitroglycerin (Nitrostat Sl) 0.4 mg ONCE ONCE SL Last administered on at 16:09; Start 10/11/17 at 16:15; Stop 10/11/17 at 16:16; Status DC Nitroglycerin/ Dextrose 250 ml @ As Directed STK-MED ONCE .ROUTE ; Start at 16:28; Stop 10/11/17 at 16:29; Status DC Heparin Sodium/ Sodium Chloride 1,000 ml @ As Directed STK-MED ONCE .ROUTE Last administered on 10/11/17at 16:51; Start 10/11/17 at 16:51; Stop 10/11/17 at 16:52; Status DC Midazolam HCl (Versed Inj) 2 mg STK-MED ONCE .ROUTE Last administered on at 16:57; Start 10/11/17 at 16:51; Stop 10/11/17 at 16:52; Status DC Fentanyl Citrate (fentaNYL INJ) 100 mcg STK-MED ONCE .ROUTE Last administered on 10/11/17at 16:51; Start 10/11/17 at 16:51; Stop 10/11/17 at 16:52; Status DC Heparin Sodium (Porcine) (Heparin Inj) 10,000 units STK-MED ONCE .ROUTE Last administered on 10/11/17at 16:51; Start 10/11/17 at 16:51; Stop 10/11/17 at 16:52 ; Status DC Tirofiban/Sodium Chloride 250 ml @ As Directed STK-MED ONCE IV ; Start at 17:07; Stop 10/11/17 at 17:08; Status DC Clopidogrel Bisulfate (Plavix) 600 mg STK-MED ONCE .ROUTE ; Start 10/11/17 at 17 :08; Stop 10/11/17 at 17:09; Status DC Prasugrel (Effient) 60 mg STK-MED ONCE .ROUTE ; Start 10/11/17 at 17:12; Stop at 17:13; Status DC Nitroglycerin/ Dextrose 250 ml @ 1.5 mls/hr TITRATE PRN IV Chest pain relief Last administered on 10/11/17at 17:17; Start 10/11/17 at 17:15 Heparin Sodium/ Sodium Chloride 1,000 ml @ As Directed STK-MED ONCE .ROUTE ; Start 10/11/17 at 17:22; Stop 10/11/17 at 17:23; Status DC Sodium Chloride (NS Flush) 2 ml UNSCH PRN IV FLUSH FLUSH AFTER USING IV ACCESS ; Start 10/11/17 at 17:30 Sodium Chloride (NS Flush) 2 ml BID IV FLUSH Last administered on 10/12/17at 07: 59; Start 10/11/17 at 21:00 Aspirin (Aspirin Chew) 162 mg DAILY PO Last administered on 10/12/17at 07:58; Start 10/12/17 at 09:00 Prasugrel (Effient) 60 mg ONCE ONCE PO Last administered on 10/11/17at 17:14; Start 10/11/17 at 17:30; Stop 10/11/17 at 17:31; Status DC Prasugrel (Effient) 10 mg DAILY PO Last administered on 10/12/17at 07:58; Start 10/12/17 at 09:00 Tirofiban/Sodium Chloride 250 ml @ 19.8 mls/hr [id number] IV Last administered on 10/12/17at 02:55; Start 10/11/17 at 17:20; Stop 10/12/17 at 11:19 Miscellaneous Information 1 ONCE ONCE XX ; Start 10/11/17 at 17:30; Stop at 17:32; Status DC Bacitracin (Bacitracin Oint Packet) 0.9 gm ONCE ONCE TOP ; Start 10/11/17 at 17 :30; Stop 10/11/17 at 17:31; Status DC Carvedilol (Coreg) 3.125 mg BID PO Last administered on 10/12/17at 07:59; Start 10/11/17 at 21:00 Ramipril (Altace) 2.5 mg DAILY PO Last administered on 10/12/17at 07:58; Start 10/12/17 at 09:00 Atorvastatin Calcium (Lipitor) 10 mg HS PO Last administered on 10/11/17at 21:46 ; Start 10/11/17 at 21:00 Sodium Chloride 1,000 ml @ 100 mls/hr Q10H IV Last administered on 10/12/17at 05:14; Start 10/11/17 at 19:00 Sodium Chloride (NS Flush) 2 ml UNSCH PRN IV FLUSH FLUSH AFTER USING IV ACCESS ; Start 10/11/17 at 18:30; Status UNV Sodium Chloride (NS Flush) 2 ml BID IV FLUSH ; Start 10/11/17 at 21:00; Status UNV Acetaminophen (Tylenol) 650 mg Q4H PRN PO TEMP > 100.4; Start 10/11/17 at 18:30 Ondansetron HCl (Zofran Odt) 4 mg Q6H PRN PO NAUSEA OR VOMITING; Start at 18:45 Metoclopramide HCl (Reglan Inj) 5 mg Q6H PRN IV PUSH NAUSEA OR VOMITING; Start 10/11/17 at 18:30 Acetaminophen (Tylenol) 650 mg Q6H PRN PO PAIN SCALE 1 TO 2; Start 10/11/17 at 18:30 Oxycodone/ Acetaminophen (Percocet 5-325 Mg) 1 tab Q6H PRN PO PAIN SCALE 3 TO 5; Start 10/11/17 at 18:30 Oxycodone/ Acetaminophen (Percocet 10-325 Mg) 1 tab Q6H PRN PO PAIN SCALE 6 TO 10 Last administered on 10/12/17at 07:57; Start 10/11/17 at 18:30 Morphine Sulfate (Morphine Inj) 2 mg Q3H PRN IV PUSH Pain 3-5; if unable to take PO Last administered on 10/11/17at 20:53; Start 10/11/17 at 18:45 Morphine Sulfate (Morphine Inj) 4 mg Q3H PRN IV PUSH Pain 6-10;if unable to take PO Last administered on 10/12/17at 08:44; Start 10/11/17 at 18:45 Morphine Sulfate (Morphine Inj) 4 mg Q3H PRN IV PUSH BREAKTHROUGH PAIN Last administered on 10/12/17at 03:06; Start 10/11/17 at 18:45 Naloxone HCl (Narcan Inj) 0.4 mg UNSCH PRN IV PUSH SEE LABEL COMMENTS; Start at 18:30 Senna/Docusate Sodium (Beatriz-Colace) 1 tab BID PO Last administered on at 07:59; Start 10/11/17 at 21:00 Magnesium Hydroxide (Milk Of Magnesia Liq) 30 ml Q12H PRN PO Mild constipation ; Start 10/11/17 at 18:30 Sennosides (Senokot) 17.2 mg Q12H PRN PO Moderate constipation; Start 10/11/17 at 18:30 Bisacodyl (Dulcolax Supp) 10 mg DAILY PRN RECTAL SEVERE CONSITIPATION; Start at 18:30 Lactulose (Lactulose Liq) 30 ml DAILY PRN PO SEVERE CONSITIPATION; Start at 18:30 Pantoprazole Sodium (Protonix) 40 mg ONCE ONCE PO Last administered on at 21:47; Start 10/11/17 at 18:45; Stop 10/11/17 at 18:46; Status DC Pantoprazole Sodium (Protonix) 40 mg Q24H PO ; Start 10/12/17 at 18:00 Iohexol (OMNIPAQUE 350 INJ (Pit Shovel Operator)) 50 ml STK-MED ONCE OTHER ; Start at 16:33; Stop 10/12/17 at 06:13; Status DC A/P Problem List: (1) STEMI (ST elevation myocardial infarction) ICD Code: I21.3 - ST elevation (STEMI) myocardial infarction of unspecified site Status: Acute (2) PAD (peripheral artery disease) ICD Code: I73.9 - Peripheral vascular disease, unspecified (3) PTSD (post-traumatic stress disorder) ICD Code: F43.10 - Post-traumatic stress disorder, unspecified (4) Chronic pain ICD Code: G89.29 - Other chronic pain (5) Tobacco abuse ICD Code: Z72.0 - Tobacco use (6) Hypercholesterolemia ICD Code: E78.00 - Pure hypercholesterolemia, unspecified (7) Hypertension ICD Code: I10 - Essential (primary) hypertension Assessment and Plan ST elevation WI status post emergent cardiac catheterization by Dr. Konstantin Cruz with bare-metal stent placed in the proximal right coronary artery-- continue on statin, aspirin, beta-eusebio, ZAINA inhibitor and PRASUGREL --TROPONINS STILL TRENDING UP Coronary artery disease has been loaded with Plavix and will be started on prasugrel AND ASPIRIN History of extensive tobacco abuse Hyperlipidemia continue on chronic statin WILL NEED TREATMENT FOR HIS ELEVATED TRIGLYCERIDES ADD NIACIN Hypertension continue on beta-blockers Has been started on ZAINA inhibitor And aspirin Peripheral vascular arterial disease is followed by Dr. Landon will need to be on chronic anticoagulation for this Tobacco abuse recommend continued cessation of all tobacco and nicotine products A.m. labs Chronic pain we will continue on pain medications and have morphine available History of left leg broken History of PTSD resume home medication- ONCE AVAILABLE OBTAIN HOME MEDICATIONS Hep-Lock IV Await cardiac clearance possible discharge within the next 24-48 hours TROPONINS STILL TRENDING UP Discharge Planning Await cardiac clearance possible discharge next 24-48 hour Problem Qualifiers (1) STEMI (ST elevation myocardial infarction): Qualified Codes: I21.3 - ST elevation (STEMI) myocardial infarction of unspecified site Gabriele Young DO October 12, 2017 09:55
[2017-10-12] MEDS ORDERED: NIACIN 500 MG EXTENDED RELEASE TAB PO ONE (10:00)
--- NOTE | 2017-10-12 11:15 | ECHRPT ---
Indication: CHEST PAIN CONCLUSIONS The left ventricular systolic function is normal with an estimated ejection fraction in the range of 55-60%. Doppler parameters are consistent with impaired left ventricular relaxtion (grade 1 diastolic dysfun ction). Trace mitral valve regurgitation. There is trace tricuspid valve regurgitation. BP: / HR: Rhythm: Sinus Technical Quality:Fair FINDINGS LEFT VENTRICLE The left ventricular systolic function is normal with an estimated ejection fraction in the range of 55-60%. Normal left ventricular size. No regional wall motion abnormalities are present. Wall thickness is measured at the upper limits of normal. Doppler parameters are consistent with impaired left ventricular relaxtion (grade 1 diastolic dysfun ction). RIGHT VENTRICLE Normal right ventricular size and systolic function. LEFT ATRIUM The left atrial size is normal. RIGHT ATRIUM The right atrial size is normal. ATRIAL SEPTUM Normal atrial septal thickness AORTA The aortic root and proximal ascending aorta are normal in size on limited imaging. MITRAL VALVE Structurally normal mitral valve. Trace mitral valve regurgitation. No mitral valve stenosis. AORTIC VALVE Trileaflet aortic valve. No aortic valve stenosis or regurgitation. TRICUSPID VALVE Structurally normal tricuspid valve. There is trace tricuspid valve regurgitation. Normal estimated pulmonary pressures. PULMONARY VALVE The pulmonary valve is not well visualized. VESSELS The inferior vena cava is normal in size. PERICARDIUM No pericardial effusion. Sky Us DO (Electronically Signed) Final Date:12 Oct 2017 11:15
[2017-10-12 11:38] LABS: TROPONIN I 36.7 NG/ML (0.02-0.05)
--- NOTE | 2017-10-12 13:53 | EKG ---
Date Performed: 10/11/2017 Time Performed: 15:56:29 PTAGE: 61 years EKG: Sinus rhythm ST ELEVATION, CONSIDER INFERIOR INJURY ACUTE NC PREVIOUS TRACING : 04/30/[address] segment depression in inferior leads and depressio n anterior is new. Cannot rule out an occurring injury. Clinical correlation is recommended. DOCTOR: Luis Bhatt Interpretating Date/Time 10/12/2017 13:51:49
--- NOTE | 2017-10-12 13:53 | EKG ---
Date Performed: 10/11/2017 Time Performed: 18:54:42 PTAGE: 61 years EKG: Sinus rhythm Anterior T wave changes are nonspecific Borderline ECG PREVIOUS TRACING : 10/11/[address]-T changes have improved since prior tracing. DOCTOR: Luis Bhatt Interpretating Date/Time 10/12/2017 13:52:15
--- NOTE | 2017-10-12 14:15 | EKG ---
Date Performed: 10/12/2017 Time Performed: 00:40:46 PTAGE: 61 years EKG: Sinus rhythm . Low QRS voltages in limb leads Borderline ECG PREVIOUS TRACING 10/11/17 Since the previous tracing, no significant change noted DOCTOR: Luis Bhatt Interpretating Date/Time 10/12/2017 14:07:57
--- NOTE | 2017-10-12 14:15 | EKG ---
Date Performed: 10/12/2017 Time Performed: 06:43:12 PTAGE: 61 years EKG: Sinus rhythm . rSr'(V1) - probable normal variant Possible inferior infarct - age undetermined Abnormal ECG PREVIOUS TRACING 10/12/17 Since the previous tracing, no significant change noted DOCTOR: Luis Bhatt Interpretating Date/Time 10/12/2017 14:07:37
--- NOTE | 2017-10-12 14:16 | PD.CARD.PN ---
Subjective Subjective Remarks "i feel much better", denies chest pain Objective Medications Current Medications Medications (Trade) Dose Ordered Sig/Pako Route Start Time Stop Time Status Last Admin Nitroglycerin/ Dextrose 250 ml @ 1.5 mls/hr TITRATE PRN IV 10/11/17 17:15 10/11/17 17:17 (NS Flush) 2 ml UNSCH PRN IV FLUSH 10/11/17 17:30 (NS Flush) 2 ml BID IV FLUSH 10/11/17 21:00 10/12/17 07:59 (Aspirin Chew) 162 mg DAILY PO 10/12/17 09:00 10/12/17 07:58 (Effient) 10 mg DAILY PO 10/12/17 09:00 10/12/17 07:58 (Coreg) 3.125 mg BID PO 10/11/17 21:00 10/12/17 07:59 (Altace) 2.5 mg DAILY PO 10/12/17 09:00 10/12/17 07:58 (Lipitor) 10 mg HS PO 10/11/17 21:00 10/11/17 21:46 (Tylenol) 650 mg Q4H PRN PO 10/11/17 18:30 (Zofran Odt) 4 mg Q6H PRN PO 10/11/17 18:45 (Reglan Inj) 5 mg Q6H PRN IV PUSH 10/11/17 18:30 (Tylenol) 650 mg Q6H PRN PO 10/11/17 18:30 (Percocet 5-325 Mg) 1 tab Q6H PRN PO 10/11/17 18:30 (Percocet 10-325 Mg) 1 tab Q6H PRN PO 10/11/17 18:30 10/12/17 14:03 (Morphine Inj) 2 mg Q3H PRN IV PUSH 10/11/17 18:45 10/11/17 20:53 (Morphine Inj) 4 mg Q3H PRN IV PUSH 10/11/17 18:45 10/12/17 12:16 (Morphine Inj) 4 mg Q3H PRN IV PUSH 10/11/17 18:45 10/12/17 03:06 (Narcan Inj) 0.4 mg UNSCH PRN IV PUSH 10/11/17 18:30 (Beatriz-Colace) 1 tab BID PO 10/11/17 21:00 10/12/17 07:59 (Milk Of Magnesia Liq) 30 ml Q12H PRN PO 10/11/17 18:30 (Senokot) 17.2 mg Q12H PRN PO 10/11/17 18:30 (Dulcolax Supp) 10 mg DAILY PRN RECTAL 10/11/17 18:30 (Lactulose Liq) 30 ml DAILY PRN PO 10/11/17 18:30 (Protonix) 40 mg Q24H PO 10/12/17 18:00 (Slo-Niacin) 500 mg HS PO 10/13/17 21:00 Vital Signs / I&O Vital Signs Date Time Temp Pulse Resp B/P (MAP) Pulse Ox O2 Delivery O2 Flow Rate FiO2 10/12/17 13:00 72 10/12/17 12:00 87 10/12/17 11:00 98.6 71 20 131/67 (88) 95 10/12/17 11:00 76 10/12/17 10:00 61 10/12/17 09:06 97 21 10/12/17 09:00 78 10/12/17 08:00 76 10/12/17 07:00 98.1 90 20 155/75 (101) 100 10/12/17 07:00 80 10/12/17 06:00 66 10/12/17 05:00 79 10/12/17 04:00 60 10/12/17 03:00 62 10/12/17 03:00 98.0 69 16 154/74 (100) 98 10/12/17 02:00 63 10/12/17 01:00 67 10/12/17 00:00 68 10/12/17 00:00 98.3 68 16 146/72 (96) 98 10/11/17 23:00 72 10/11/17 22:00 72 10/11/17 21:00 72 10/11/17 20:00 98.2 64 16 140/67 (91) 100 10/11/17 20:00 60 10/11/17 19:00 66 10/11/17 18:00 98.1 65 17 167/81 (109) 100 10/11/17 17:17 76 134/72 10/11/17 16:40 78 20 169/94 (119) 97 Nasal Cannula 2.00 10/11/17 16:35 10/11/17 16:27 76 137/64 (88) 97 Nasal Cannula 2.00 10/11/17 16:22 60 10/11/17 16:11 80 19 194/95 (128) 98 Nasal Cannula 2.00 10/11/17 16:10 98 Nasal Cannula 2.00 10/11/17 16:07 98 Nasal Cannula 3.00 10/11/17 15:30 97.4 72 16 224/102 (142) 99 I/O 10/11/17 10/11/17 10/11/17 10/12/17 10/12/17 10/12/17 07:00 15:00 23:00 07:00 15:00 23:00 Intake Total 480 ml 480 ml Output Total 1800 ml Balance -1320 ml 480 ml Intake Oral 480 ml IV Total 480 ml Output Urine Total 1800 ml # Bowel Movements 0 Physical Exam GENERAL: SKIN: Warm and dry. HEAD: Normocephalic. EYES: No scleral icterus. No injection or drainage. NECK: Supple, trachea midline. No JVD or lymphadenopathy. CARDIOVASCULAR: Regular rate and rhythm without murmurs, gallops, or rubs. RESPIRATORY: Breath sounds equal bilaterally. No accessory muscle use. GASTROINTESTINAL: Abdomen soft, non-tender, nondistended. MUSCULOSKELETAL: No cyanosis, or edema. BACK: Nontender without obvious deformity. No CVA tenderness. Laboratory Laboratory Tests Test 10/11/17 16:09 10/11/17 20:20 10/12/17 02:24 10/12/17 10:15 White Blood Count 11.9 TH/MM3 12.2 TH/MM3 Red Blood Count 5.74 MIL/MM3 5.21 MIL/MM3 Hemoglobin 16.6 GM/DL 14.7 GM/DL Bedside Hemoglobin 17.0 G/DL Hematocrit 48.8 % 43.8 % Bedside Hematocrit 50.0 % Mean Corpuscular Volume 85.1 FL 84.0 FL Mean Corpuscular Hemoglobin 28.9 PG 28.3 PG Mean Corpuscular Hemoglobin Concent 33.9 % 33.6 % Red Cell Distribution Width 15.4 % 15.3 % Platelet Count 231 TH/MM3 246 TH/MM3 Mean Platelet Volume 8.6 FL 8.7 FL Neutrophils (%) (Auto) 78.6 % 68.7 % Lymphocytes (%) (Auto) 12.3 % 18.7 % Monocytes (%) (Auto) 7.1 % 10.2 % Eosinophils (%) (Auto) 1.2 % 1.7 % Basophils (%) (Auto) 0.8 % 0.7 % Neutrophils # (Auto) 9.3 TH/MM3 8.4 TH/MM3 Lymphocytes # (Auto) 1.5 TH/MM3 2.3 TH/MM3 Monocytes # (Auto) 0.8 TH/MM3 1.2 TH/MM3 Eosinophils # (Auto) 0.1 TH/MM3 0.2 TH/MM3 Basophils # (Auto) 0.1 TH/MM3 0.1 TH/MM3 CBC Comment DIFF FINAL DIFF FINAL Differential Comment Prothrombin Time 10.4 SEC 10.4 SEC Prothromb Time International Ratio 1.0 RATIO 1.0 RATIO Activated Partial Thromboplast Time 27.1 SEC Bedside Sodium 135 MMOL/L Blood Urea Nitrogen 11 MG/DL 9 MG/DL Creatinine 1.03 MG/DL 0.93 MG/DL Random Glucose 178 MG/DL 125 MG/DL Total Protein 7.8 GM/DL 6.7 GM/DL Albumin 4.0 GM/DL 3.4 GM/DL Calcium Level 9.5 MG/DL 8.6 MG/DL Magnesium Level 2.3 MG/DL 2.4 MG/DL Alkaline Phosphatase 82 U/L 64 U/L Aspartate Amino Transf (AST/SGOT) 47 U/L 167 U/L Alanine Aminotransferase (ALT/SGPT) 70 U/L 69 U/L Total Bilirubin 0.8 MG/DL 0.6 MG/DL Sodium Level 135 MEQ/L 138 MEQ/L Potassium Level 4.1 MEQ/L 4.1 MEQ/L Chloride Level 97 MEQ/L 100 MEQ/L Carbon Dioxide Level 27.5 MEQ/L 28.4 MEQ/L Bedside Potassium 4.3 MMOL/L Bedside Chloride 97 MMOL/L Anion Gap 11 MEQ/L 10 MEQ/L Bedside Blood Urea Nitrogen 11 MG/DL Bedside Creatinine 0.8 MG/DL Estimat Glomerular Filtration Rate 74 ML/MIN 83 ML/MIN Bedside Glucose 183 MG/DL Total Creatine Kinase 83 U/L 555 U/L 1313 U/L 1680 U/L Troponin I 0.08 NG/ML 3.15 NG/ML 18.30 NG/ML 36.70 NG/ML Creatine Kinase MB 42.4 NG/ML 126.0 NG/ML 137.9 NG/ML Creatine Kinase MB % 7.6 % 9.6 % 8.2 % Phosphorus Level 3.4 MG/DL Direct Bilirubin 0.1 MG/DL Indirect Bilirubin 0.5 MG/DL Triglycerides Level 602 MG/DL Cholesterol Level 205 MG/DL LDL Cholesterol MG/DL HDL Cholesterol 38.8 MG/DL Cholesterol/HDL Ratio 5.28 RATIO Free Thyroxine 0.96 NG/DL Thyroid Stimulating Hormone 3rd Gen 1.030 uIU/ML Test 10/12/17 13:31 Imaging Last 24 hours Impressions Chest X-Ray 10/11/17 1540 Signed Impressions: CONCLUSION: No acute findings. Minimal basilar atelectasis. Assessment and Plan Problem List: (1) CAD (coronary artery disease) ICD Codes: I25.10 - Atherosclerotic heart disease of [place] coronary artery without angina pectoris (2) PAD (peripheral artery disease) ICD Codes: I73.9 - Peripheral vascular disease, unspecified (3) Hypertension ICD Codes: I10 - Essential (primary) hypertension (4) Tobacco abuse ICD Codes: Z72.0 - Tobacco use (5) STEMI (ST elevation myocardial infarction) ICD Codes: I21.3 - ST elevation (STEMI) myocardial infarction of unspecified site Status: Acute (6) Hypercholesterolemia ICD Codes: E78.00 - Pure hypercholesterolemia, unspecified Assessment and Plan 1.) CAD/stemi - pod#1 promary pci with bms prox rca - continue aspirin, effient , altace, coreg, lipitor, f/u lfts in am, chest pain started 4 days ago so expect peak troponin today or tomorrow, also trop/cpk elevated due to wash out, continue to trend, ekg wuth resolved st segments and chest pain has resolved so no indication for repeat cath; d/w nurse Problem Qualifiers (1) STEMI (ST elevation myocardial infarction): Qualified Codes: I21.3 - ST elevation (STEMI) myocardial infarction of unspecified site Konstantin Cruz MD October 12, 2017 14:16
[2017-10-12 16:18] LABS: HEMOGLOBIN A1C 6.4 % (4.3-6.0)
[2017-10-12] MEDS ORDERED: PANTOPRAZOLE SOD 40 MG DELAYED RELEASE TAB PO SCH (18:00)
[2017-10-12] MEDS: ATORVASTATIN 10 MG TAB PO SCH (20:34)
[2017-10-13] VITALS (16 sets, daily range): BP systolic 112–138; BP diastolic 58–66; PULSE 68–93; RESP 16–20; TEMP 97.9–99; O2SAT 94–97
[2017-10-13] MEDS: MORPHINE SULFATE 4 MG/ML INJ IV PUSH PRN ×3 (02:02→11:55)
[2017-10-13 05:10] LABS: AUTOMATED NEUTROPHIL # 7.7 TH/MM3 (1.8-7.7); BASOPHIL # 0.1 TH/MM3 (0-0.2); BASOPHIL % 1.1 % (0.0-2.0); EOSINOPHIL # 0.4 TH/MM3 (0-0.4); EOSINOPHIL % 3.1 % (0.0-4.0); HEMATOCRIT 44.6 % (39.0-51.0); HEMOGLOBIN 15.2 GM/DL (13.0-17.0); LYMPH % 22.3 % (9.0-44.0); LYMPHOCYTE # 2.8 TH/MM3 (1.0-4.8); MEAN CORPUSCULAR HEMOGLOBIN 28.9 PG (27.0-34.0); MEAN CORPUSCULAR HGB CONC 34.1 % (32.0-36.0); MEAN PLATELET VOLUME 8.5 FL (7.0-11.0); MONO % 11.5 % (0.0-8.0); MONOCYTE # 1.4 TH/MM3 (0-0.9); PLATELET COUNT 228 TH/MM3 (150-450); RED BLOOD COUNT 5.24 MIL/MM3 (4.50-5.90); RED CELL DISTRIBUTION WIDTH 15.7 % (11.6-17.2); WHITE BLOOD COUNT 12.4 TH/MM3 (4.0-11.0)
[2017-10-13 05:28] LABS: ALBUMIN 3.6 GM/DL (3.4-5.0); DIRECT BILIRUBIN ADULT 0.3 MG/DL (0.0-0.2); MAGNESIUM 2.3 MG/DL (1.5-2.5); PHOSPHORUS 2.6 MG/DL (2.5-4.9)
[2017-10-13 05:32] LABS: INDIRECT BILIRUBIN 1.1 MG/DL (0.0-0.8); TOTAL BILIRUBIN ADULT 1.4 MG/DL (0.2-1.0); TOTAL PROTEIN 7.2 GM/DL (6.4-8.2)
[2017-10-13 05:55] LABS: TROPONIN I 20.7 NG/ML (0.02-0.05)
[2017-10-13] MEDS: oxyCODONE/ACETAMINOPHEN 10 MG/325 MG TAB PO PRN ×2 (06:57→13:07)
[2017-10-13] MEDS: CARVEDILOL 3.125 MG TAB PO SCH (08:23)
[2017-10-13] MEDS: ASPIRIN 81 MG CHEW TAB PO SCH (08:24)
[2017-10-13] MEDS: DOCUSATE SODIUM 50 MG/SENNA 8.6 MG TAB PO SCH (08:24)
[2017-10-13] MEDS: RAMIPRIL 2.5 MG CAP PO SCH (08:24)
[2017-10-13] MEDS: PRASUGREL 10 MG TAB PO SCH (08:24)
[2017-10-13] MEDS: SODIUM CHLORIDE 0.9% FLUSH 10 ML FLUSH IV FLUSH SCH (08:24)
--- NOTE | 2017-10-13 10:04 | HHI.PR ---
Subjective Remarks Remarks Patient is a 61-year-old male who presented to the emergency department with chest pain. Was found to have a ST elevation NC and was taken to the cardiac Prepress Stripper by Dr. Cruz had a bare-metal stent placed in his proximal RCA. We have now been asked to help with his medical management. Patient has a history of peripheral art arterial disease followed by Dr. Landon as well as cervical and lumbar disease followed by Dr. Felipe. Has chronic pain medications that are followed by Dr. Browning 10-12 adjust meds dc iv fluids dw RN AND PT STILL HAVING BACK PAIN AND PAIN BUT THIS IS A CHRONIC CONDITION STOP IV FLUIDS AM LABS IF NOT DCED TODAY Await cardiac clearance discharge next 24-48 hour HAS ELEVATED TRIGLYCERIDES TROPONINS ARE STILL TRENDING UP DC IS ON HOLD FOR TODAY 10-13 TROPONINS ARE TRENDING DOWN NO CHEST PAIN DC TO HOME TODAY NEEDS TO FOLLOW UP WITH PCP AND CARDIOLOGY DC TO HOME TODAY CONTINUE SMOKING CESSATION Objective Vitals Vital Signs Date Time Temp Pulse Resp B/P (MAP) Pulse Ox O2 Delivery O2 Flow Rate FiO2 10/13/17 09:00 93 10/13/17 08:00 88 10/13/17 07:00 97.9 68 20 122/65 (84) 97 10/13/17 07:00 91 10/13/17 06:00 89 10/13/17 05:00 79 10/13/17 04:00 78 10/13/17 03:30 99.0 78 16 112/58 (76) 94 10/13/17 03:00 78 10/13/17 02:00 80 10/13/17 01:00 77 10/13/17 00:00 76 10/12/17 23:45 98.4 71 16 91/51 (64) 93 10/12/17 23:00 74 10/12/17 22:00 78 10/12/17 21:00 82 10/12/17 20:00 82 10/12/17 20:00 99.1 84 16 129/68 (88) 96 10/12/17 19:00 82 10/12/17 18:00 96 10/12/17 17:00 81 10/12/17 16:00 77 10/12/17 15:00 98.2 98 20 111/70 (84) 96 10/12/17 15:00 98 10/12/17 14:00 87 10/12/17 13:00 72 10/12/17 12:00 87 10/12/17 11:00 98.6 71 20 131/67 (88) 95 10/12/17 11:00 76 I/O 10/12/17 10/12/17 10/12/17 10/13/17 10/13/17 10/13/17 07:00 15:00 23:00 07:00 15:00 23:00 Intake Total 480 ml 480 ml 1080 ml 480 ml Output Total 1800 ml 1050 ml Balance -1320 ml 480 ml 30 ml 480 ml Intake Oral 480 ml 1080 ml 480 ml IV Total 480 ml Output Urine Total 1800 ml 1050 ml # Voids 1 4 # Bowel Movements 0 0 0 Result Diagram: 10/13/17 0452 10/12/17 0224 Other Results Laboratory Tests Test 10/11/17 16:09 10/11/17 20:20 10/12/17 02:24 10/12/17 10:15 White Blood Count 11.9 TH/MM3 12.2 TH/MM3 Red Blood Count 5.74 MIL/MM3 5.21 MIL/MM3 Hemoglobin 16.6 GM/DL 14.7 GM/DL Bedside Hemoglobin 17.0 G/DL Hematocrit 48.8 % 43.8 % Bedside Hematocrit 50.0 % Mean Corpuscular Volume 85.1 FL 84.0 FL Mean Corpuscular Hemoglobin 28.9 PG 28.3 PG Mean Corpuscular Hemoglobin Concent 33.9 % 33.6 % Red Cell Distribution Width 15.4 % 15.3 % Platelet Count 231 TH/MM3 246 TH/MM3 Mean Platelet Volume 8.6 FL 8.7 FL Neutrophils (%) (Auto) 78.6 % 68.7 % Lymphocytes (%) (Auto) 12.3 % 18.7 % Monocytes (%) (Auto) 7.1 % 10.2 % Eosinophils (%) (Auto) 1.2 % 1.7 % Basophils (%) (Auto) 0.8 % 0.7 % Neutrophils # (Auto) 9.3 TH/MM3 8.4 TH/MM3 Lymphocytes # (Auto) 1.5 TH/MM3 2.3 TH/MM3 Monocytes # (Auto) 0.8 TH/MM3 1.2 TH/MM3 Eosinophils # (Auto) 0.1 TH/MM3 0.2 TH/MM3 Basophils # (Auto) 0.1 TH/MM3 0.1 TH/MM3 CBC Comment DIFF FINAL DIFF FINAL Differential Comment Prothrombin Time 10.4 SEC 10.4 SEC Prothromb Time International Ratio 1.0 RATIO 1.0 RATIO Activated Partial Thromboplast Time 27.1 SEC Bedside Sodium 135 MMOL/L Blood Urea Nitrogen 11 MG/DL 9 MG/DL Creatinine 1.03 MG/DL 0.93 MG/DL Random Glucose 178 MG/DL 125 MG/DL Total Protein 7.8 GM/DL 6.7 GM/DL Albumin 4.0 GM/DL 3.4 GM/DL Calcium Level 9.5 MG/DL 8.6 MG/DL Magnesium Level 2.3 MG/DL 2.4 MG/DL Alkaline Phosphatase 82 U/L 64 U/L Aspartate Amino Transf (AST/SGOT) 47 U/L 167 U/L Alanine Aminotransferase (ALT/SGPT) 70 U/L 69 U/L Total Bilirubin 0.8 MG/DL 0.6 MG/DL Sodium Level 135 MEQ/L 138 MEQ/L Potassium Level 4.1 MEQ/L 4.1 MEQ/L Chloride Level 97 MEQ/L 100 MEQ/L Carbon Dioxide Level 27.5 MEQ/L 28.4 MEQ/L Bedside Potassium 4.3 MMOL/L Bedside Chloride 97 MMOL/L Anion Gap 11 MEQ/L 10 MEQ/L Bedside Blood Urea Nitrogen 11 MG/DL Bedside Creatinine 0.8 MG/DL Estimat Glomerular Filtration Rate 74 ML/MIN 83 ML/MIN Bedside Glucose 183 MG/DL Total Creatine Kinase 83 U/L 555 U/L 1313 U/L 1680 U/L Troponin I 0.08 NG/ML 3.15 NG/ML 18.30 NG/ML 36.70 NG/ML Creatine Kinase MB 42.4 NG/ML 126.0 NG/ML 137.9 NG/ML Creatine Kinase MB % 7.6 % 9.6 % 8.2 % Hemoglobin A1c 6.4 % Phosphorus Level 3.4 MG/DL Direct Bilirubin 0.1 MG/DL Indirect Bilirubin 0.5 MG/DL Triglycerides Level 602 MG/DL Cholesterol Level 205 MG/DL LDL Cholesterol MG/DL HDL Cholesterol 38.8 MG/DL Cholesterol/HDL Ratio 5.28 RATIO Free Thyroxine 0.96 NG/DL Thyroid Stimulating Hormone 3rd Gen 1.030 uIU/ML Test 10/12/17 13:31 10/12/17 17:45 10/13/17 04:52 10/13/17 09:43 Total Creatine Kinase 1465 U/L 1278 U/L 642 U/L Creatine Kinase MB 105.7 NG/ML 71.3 NG/ML 19.5 NG/ML Creatine Kinase MB % 7.2 % 5.6 % 3.0 % White Blood Count 12.4 TH/MM3 Red Blood Count 5.24 MIL/MM3 Hemoglobin 15.2 GM/DL Hematocrit 44.6 % Mean Corpuscular Volume 85.0 FL Mean Corpuscular Hemoglobin 28.9 PG Mean Corpuscular Hemoglobin Concent 34.1 % Red Cell Distribution Width 15.7 % Platelet Count 228 TH/MM3 Mean Platelet Volume 8.5 FL Neutrophils (%) (Auto) 62.0 % Lymphocytes (%) (Auto) 22.3 % Monocytes (%) (Auto) 11.5 % Eosinophils (%) (Auto) 3.1 % Basophils (%) (Auto) 1.1 % Neutrophils # (Auto) 7.7 TH/MM3 Lymphocytes # (Auto) 2.8 TH/MM3 Monocytes # (Auto) 1.4 TH/MM3 Eosinophils # (Auto) 0.4 TH/MM3 Basophils # (Auto) 0.1 TH/MM3 CBC Comment DIFF FINAL Differential Comment Phosphorus Level 2.6 MG/DL Magnesium Level 2.3 MG/DL Total Bilirubin 1.4 MG/DL Direct Bilirubin 0.3 MG/DL Indirect Bilirubin 1.1 MG/DL Aspartate Amino Transf (AST/SGOT) 146 U/L Alanine Aminotransferase (ALT/SGPT) 63 U/L Alkaline Phosphatase 66 U/L Troponin I 20.70 NG/ML Total Protein 7.2 GM/DL Albumin 3.6 GM/DL Imaging Last Impressions Chest X-Ray 10/11/17 1540 Signed Impressions: CONCLUSION: No acute findings. Minimal basilar atelectasis. Objective Remarks GENERAL: Awake alert and oriented talkative and cooperative appears to have some chronic back pain that is bothering him improved with morphine and Percocet SKIN: Warm and dry. Right groin is stable HEAD: Atraumatic. Normocephalic. EYES: Pupils equal and round. No scleral icterus. No injection or drainage. Extraocular muscles intact ENT: No nasal bleeding or discharge. Mucous membranes pink and moist. Tongue is midline NECK: Trachea midline. No JVD. Supple CARDIOVASCULAR: Regular rate and rhythm. S1-S2 no S3 or S4 no heave or thrill or rub or gallop RESPIRATORY: No accessory muscle use. Clear to auscultation. Breath sounds equal bilaterally. GASTROINTESTINAL: Abdomen soft, non-tender, nondistended. Hepatic and splenic margins not palpable. MUSCULOSKELETAL: Extremities without clubbing, cyanosis, or edema. No obvious deformities. Right groin is stable NEUROLOGICAL: Awake and alert. No obvious cranial nerve deficits. Motor grossly within normal limits. Five out of 5 muscle strength in the arms and legs. Normal speech. PSYCHIATRIC: Appropriate mood and affect; insight and judgment normal. Procedures ST elevation NC and was taken to the cardiac Prepress Stripper by Dr. Cruz had a bare -metal stent placed in his proximal RCA Medications and IVs Current Medications Sodium Chloride (NS Flush) 2 ml UNSCH PRN IVF FLUSH AFTER USING IV ACCESS Last administered on 10/11/17 16:08; Start 10/11/17 at 15:45; Stop 10/11/17 at 17:32 ; Status DC Aspirin (Aspirin Chew) 324 mg ONCE ONCE CHEW Last administered on 10/11/17 16 :07; Start 10/11/17 at 16:15; Stop 10/11/17 at 16:16; Status DC Heparin Sodium (Porcine) (Heparin Inj) 5,000 units ONCE ONCE IV Last administered on 10/11/17 16:08; Start 10/11/17 at 16:15; Stop 10/11/17 at 16:16 ; Status DC Nitroglycerin (Nitrostat Sl) 0.4 mg ONCE ONCE SL Last administered on 16:09; Start 10/11/17 at 16:15; Stop 10/11/17 at 16:16; Status DC Nitroglycerin/ Dextrose 250 ml @ As Directed STK-MED ONCE .ROUTE ; Start at 16:28; Stop 10/11/17 at 16:29; Status DC Heparin Sodium/ Sodium Chloride 1,000 ml @ As Directed STK-MED ONCE .ROUTE Last administered on 10/11/17at 16:51; Start 10/11/17 at 16:51; Stop 10/11/17 at 16:52; Status DC Midazolam HCl (Versed Inj) 2 mg STK-MED ONCE .ROUTE Last administered on at 16:57; Start 10/11/17 at 16:51; Stop 10/11/17 at 16:52; Status DC Fentanyl Citrate (fentaNYL INJ) 100 mcg STK-MED ONCE .ROUTE Last administered on 10/11/17at 16:51; Start 10/11/17 at 16:51; Stop 10/11/17 at 16:52; Status DC Heparin Sodium (Porcine) (Heparin Inj) 10,000 units STK-MED ONCE .ROUTE Last administered on 10/11/17at 16:51; Start 10/11/17 at 16:51; Stop 10/11/17 at 16:52 ; Status DC Tirofiban/Sodium Chloride 250 ml @ As Directed STK-MED ONCE IV ; Start at 17:07; Stop 10/11/17 at 17:08; Status DC Clopidogrel Bisulfate (Plavix) 600 mg STK-MED ONCE .ROUTE ; Start 10/11/17 at 17 :08; Stop 10/11/17 at 17:09; Status DC Prasugrel (Effient) 60 mg STK-MED ONCE .ROUTE ; Start 10/11/17 at 17:12; Stop at 17:13; Status DC Nitroglycerin/ Dextrose 250 ml @ 1.5 mls/hr TITRATE PRN IV Chest pain relief Last administered on 10/11/17at 17:17; Start 10/11/17 at 17:15 Heparin Sodium/ Sodium Chloride 1,000 ml @ As Directed STK-MED ONCE .ROUTE ; Start 10/11/17 at 17:22; Stop 10/11/17 at 17:23; Status DC Sodium Chloride (NS Flush) 2 ml UNSCH PRN IV FLUSH FLUSH AFTER USING IV ACCESS ; Start 10/11/17 at 17:30 Sodium Chloride (NS Flush) 2 ml BID IV FLUSH Last administered on 10/13/17at 08: 24; Start 10/11/17 at 21:00 Aspirin (Aspirin Chew) 162 mg DAILY PO Last administered on 10/13/17at 08:24; Start 10/12/17 at 09:00 Prasugrel (Effient) 60 mg ONCE ONCE PO Last administered on 10/11/17at 17:14; Start 10/11/17 at 17:30; Stop 10/11/17 at 17:31; Status DC Prasugrel (Effient) 10 mg DAILY PO Last administered on 10/13/17at 08:24; Start 10/12/17 at 09:00 Tirofiban/Sodium Chloride 250 ml @ 19.8 mls/hr [id number] IV Last administered on 10/12/17at 02:55; Start 10/11/17 at 17:20; Stop 10/12/17 at 11:19; Status DC Miscellaneous Information 1 ONCE ONCE XX ; Start 10/11/17 at 17:30; Stop at 17:32; Status DC Bacitracin (Bacitracin Oint Packet) 0.9 gm ONCE ONCE TOP ; Start 10/11/17 at 17 :30; Stop 10/11/17 at 17:31; Status DC Carvedilol (Coreg) 3.125 mg BID PO Last administered on 10/13/17at 08:23; Start 10/11/17 at 21:00 Ramipril (Altace) 2.5 mg DAILY PO Last administered on 10/13/17at 08:24; Start 10/12/17 at 09:00 Atorvastatin Calcium (Lipitor) 10 mg HS PO Last administered on 10/12/17at 20:34 ; Start 10/11/17 at 21:00 Sodium Chloride 1,000 ml @ 100 mls/hr Q10H IV Last administered on 10/12/17at 05:14; Start 10/11/17 at 19:00; Stop 10/12/17 at 09:45; Status DC Sodium Chloride (NS Flush) 2 ml UNSCH PRN IV FLUSH FLUSH AFTER USING IV ACCESS ; Start 10/11/17 at 18:30; Status UNV Sodium Chloride (NS Flush) 2 ml BID IV FLUSH ; Start 10/11/17 at 21:00; Status UNV Acetaminophen (Tylenol) 650 mg Q4H PRN PO TEMP > 100.4; Start 10/11/17 at 18:30 Ondansetron HCl (Zofran Odt) 4 mg Q6H PRN PO NAUSEA OR VOMITING; Start at 18:45 Metoclopramide HCl (Reglan Inj) 5 mg Q6H PRN IV PUSH NAUSEA OR VOMITING; Start 10/11/17 at 18:30 Acetaminophen (Tylenol) 650 mg Q6H PRN PO PAIN SCALE 1 TO 2; Start 10/11/17 at 18:30 Oxycodone/ Acetaminophen (Percocet 5-325 Mg) 1 tab Q6H PRN PO PAIN SCALE 3 TO 5; Start 10/11/17 at 18:30 Oxycodone/ Acetaminophen (Percocet 10-325 Mg) 1 tab Q6H PRN PO PAIN SCALE 6 TO 10 Last administered on 10/13/17at 06:57; Start 10/11/17 at 18:30 Morphine Sulfate (Morphine Inj) 2 mg Q3H PRN IV PUSH Pain 3-5; if unable to take PO Last administered on 10/11/17at 20:53; Start 10/11/17 at 18:45 Morphine Sulfate (Morphine Inj) 4 mg Q3H PRN IV PUSH Pain 6-10;if unable to take PO Last administered on 10/12/17at 18:16; Start 10/11/17 at 18:45 Morphine Sulfate (Morphine Inj) 4 mg Q3H PRN IV PUSH BREAKTHROUGH PAIN Last administered on 10/13/17at 08:25; Start 10/11/17 at 18:45 Naloxone HCl (Narcan Inj) 0.4 mg UNSCH PRN IV PUSH SEE LABEL COMMENTS; Start at 18:30 Senna/Docusate Sodium (Beatriz-Colace) 1 tab BID PO Last administered on at 08:24; Start 10/11/17 at 21:00 Magnesium Hydroxide (Milk Of Magnesia Liq) 30 ml Q12H PRN PO Mild constipation ; Start 10/11/17 at 18:30 Sennosides (Senokot) 17.2 mg Q12H PRN PO Moderate constipation; Start 10/11/17 at 18:30 Bisacodyl (Dulcolax Supp) 10 mg DAILY PRN RECTAL SEVERE CONSITIPATION; Start at 18:30 Lactulose (Lactulose Liq) 30 ml DAILY PRN PO SEVERE CONSITIPATION; Start at 18:30 Pantoprazole Sodium (Protonix) 40 mg ONCE ONCE PO Last administered on at 21:47; Start 10/11/17 at 18:45; Stop 10/11/17 at 18:46; Status DC Pantoprazole Sodium (Protonix) 40 mg Q24H PO Last administered on 10/12/17at 17: 20; Start 10/12/17 at 18:00 Iohexol (OMNIPAQUE 350 INJ (Prepress Stripper)) 50 ml STK-MED ONCE OTHER ; Start at 16:33; Stop 10/12/17 at 06:13; Status DC Niacin (Slo-Niacin) 500 mg ONCE ONCE PO Last administered on 10/12/17at 11:09; Start 10/12/17 at 10:00; Stop 10/12/17 at 10:40; Status DC Niacin (Slo-Niacin) 500 mg HS PO ; Start 10/13/17 at 21:00 A/P Problem List: (1) STEMI (ST elevation myocardial infarction) ICD Code: I21.3 - ST elevation (STEMI) myocardial infarction of unspecified site Status: Acute (2) PAD (peripheral artery disease) ICD Code: I73.9 - Peripheral vascular disease, unspecified (3) PTSD (post-traumatic stress disorder) ICD Code: F43.10 - Post-traumatic stress disorder, unspecified (4) Chronic pain ICD Code: G89.29 - Other chronic pain (5) Tobacco abuse ICD Code: Z72.0 - Tobacco use (6) Hypercholesterolemia ICD Code: E78.00 - Pure hypercholesterolemia, unspecified (7) Hypertension ICD Code: I10 - Essential (primary) hypertension Assessment and Plan ST elevation NC status post emergent cardiac catheterization by Dr. Konstantin Cruz with bare-metal stent placed in the proximal right coronary artery-- continue on statin, aspirin, beta-eusebio, ZAINA inhibitor and PRASUGREL --TROPONINS STILL TRENDING UP Coronary artery disease has been loaded with Plavix and will be started on prasugrel AND ASPIRIN History of extensive tobacco abuse Hyperlipidemia continue on chronic statin WILL NEED TREATMENT FOR HIS ELEVATED TRIGLYCERIDES ADD NIACIN Hypertension continue on beta-blockers Has been started on ZAINA inhibitor And aspirin Peripheral vascular arterial disease is followed by Dr. Landon will need to be on chronic anticoagulation for this Tobacco abuse recommend continued cessation of all tobacco and nicotine products A.m. labs Chronic pain we will continue on pain medications and have morphine available History of left leg broken History of PTSD resume home medication- ONCE AVAILABLE OBTAIN HOME MEDICATIONS Hep-Lock IV Await cardiac clearance possible discharge within the next 24-48 hours TROPONINS NOW TRENDING DOWN DC TO HOME TODAY Discharge Planning DC TO HOME TODAY Problem Qualifiers (1) STEMI (ST elevation myocardial infarction): Qualified Codes: I21.3 - ST elevation (STEMI) myocardial infarction of unspecified site Gabriele Young DO October 13, 2017 10:04
[2017-10-13] MEDS ORDERED: RAMI2.5C PO (10:09)
[2017-10-13] MEDS ORDERED: PANT40TA3 PO (10:09)
[2017-10-13] MEDS ORDERED: NIAC500 PO (10:09)
[2017-10-13] MEDS ORDERED: PRAS10TA PO (10:09)
[2017-10-13] MEDS ORDERED: LIPI40TA PO (10:09)
[2017-10-13] MEDS ORDERED: ASPI81 PO (10:09)
[2017-10-13] MEDS ORDERED: CARV3.125 PO (10:09)
--- NOTE | 2017-10-13 10:11 | HHI.DS ---
Discharge Summary Admission Date October 11, 2017 at 16:53 Discharge Date: October 13, 2017 Admitting Diagnosis STEMI (1) STEMI (ST elevation myocardial infarction) ICD Code: I21.3 - ST elevation (STEMI) myocardial infarction of unspecified site Diagnosis: Principal Status: Acute (2) PAD (peripheral artery disease) ICD Code: I73.9 - Peripheral vascular disease, unspecified Diagnosis: Secondary (3) PTSD (post-traumatic stress disorder) ICD Code: F43.10 - Post-traumatic stress disorder, unspecified Diagnosis: Secondary (4) Chronic pain ICD Code: G89.29 - Other chronic pain Diagnosis: Secondary (5) Tobacco abuse ICD Code: Z72.0 - Tobacco use Diagnosis: Secondary (6) Hypercholesterolemia ICD Code: E78.00 - Pure hypercholesterolemia, unspecified Diagnosis: Principal (7) Hypertension ICD Code: I10 - Essential (primary) hypertension Diagnosis: Secondary Procedures ST elevation AL and was taken to the cardiac Veterinary Technician Assistant by Dr. Cruz had a bare -metal stent placed in his proximal RCA Brief History - From Admission Patient is a 61-year-old male who presented to the emergency department with chest pain. Was found to have a ST elevation AL and was taken to the cardiac Veterinary Technician Assistant by Dr. Cruz had a bare-metal stent placed in his proximal RCA. We have now been asked to help with his medical management. Patient has a history of peripheral art arterial disease followed by Dr. Landon as well as cervical and lumbar disease followed by Dr. Felipe. Has chronic pain medications that are followed by Dr. Browning CBC/BMP: 10/13/17 0452 10/12/17 0224 Significant Findings Laboratory Tests Test 10/11/17 16:09 10/11/17 20:20 10/12/17 02:24 10/12/17 10:15 White Blood Count 11.9 TH/MM3 (4.0-11.0) 12.2 TH/MM3 (4.0-11.0) Neutrophils (%) (Auto) 78.6 % (16.0-70.0) Neutrophils # (Auto) 9.3 TH/MM3 (1.8-7.7) 8.4 TH/MM3 (1.8-7.7) Bedside Sodium 135 MMOL/L (137-144) Random Glucose 178 MG/DL (74-106) 125 MG/DL (74-106) Aspartate Amino Transf (AST/SGOT) 47 U/L (15-37) 167 U/L (15-37) Sodium Level 135 MEQ/L (136-145) Chloride Level 97 MEQ/L (98-107) Bedside Chloride 97 MMOL/L (102-111) Estimat Glomerular Filtration Rate 74 ML/MIN (>89) 83 ML/MIN (>89) Bedside Glucose 183 MG/DL (68-110) Troponin I 0.08 NG/ML (0.02-0.05) 3.15 NG/ML (0.02-0.05) 18.30 NG/ML (0.02-0.05) 36.70 NG/ML (0.02-0.05) Total Creatine Kinase 555 U/L (39-308) 1313 U/L (39-308) 1680 U/L (39-308) Creatine Kinase MB 42.4 NG/ML (0.5-3.6) 126.0 NG/ML (0.5-3.6) 137.9 NG/ML (0.5-3.6) Creatine Kinase MB % 7.6 % (0.0-4.0) 9.6 % (0.0-4.0) 8.2 % (0.0-4.0) Monocytes (%) (Auto) 10.2 % (0.0-8.0) Monocytes # (Auto) 1.2 TH/MM3 (0-0.9) Hemoglobin A1c 6.4 % (4.3-6.0) Triglycerides Level 602 MG/DL (42-150) Cholesterol Level 205 MG/DL (120-200) HDL Cholesterol 38.8 MG/DL (40.0-60.0) Test 10/12/17 13:31 10/12/17 17:45 10/13/17 04:52 10/13/17 09:43 Total Creatine Kinase 1465 U/L (39-308) 1278 U/L (39-308) 642 U/L (39-308) Creatine Kinase MB 105.7 NG/ML (0.5-3.6) 71.3 NG/ML (0.5-3.6) 19.5 NG/ML (0.5-3.6) Creatine Kinase MB % 7.2 % (0.0-4.0) 5.6 % (0.0-4.0) White Blood Count 12.4 TH/MM3 (4.0-11.0) Monocytes (%) (Auto) 11.5 % (0.0-8.0) Monocytes # (Auto) 1.4 TH/MM3 (0-0.9) Total Bilirubin 1.4 MG/DL (0.2-1.0) Direct Bilirubin 0.3 MG/DL (0.0-0.2) Indirect Bilirubin 1.1 MG/DL (0.0-0.8) Aspartate Amino Transf (AST/SGOT) 146 U/L (15-37) Troponin I 20.70 NG/ML (0.02-0.05) Imaging Last Impressions Chest X-Ray 10/11/17 1540 Signed Impressions: CONCLUSION: No acute findings. Minimal basilar atelectasis. PE at Discharge GENERAL: Awake alert and oriented talkative and cooperative appears to have some chronic back pain that is bothering him improved with morphine and Percocet SKIN: Warm and dry. Right groin is stable HEAD: Atraumatic. Normocephalic. EYES: Pupils equal and round. No scleral icterus. No injection or drainage. Extraocular muscles intact ENT: No nasal bleeding or discharge. Mucous membranes pink and moist. Tongue is midline NECK: Trachea midline. No JVD. Supple CARDIOVASCULAR: Regular rate and rhythm. S1-S2 no S3 or S4 no heave or thrill or rub or gallop RESPIRATORY: No accessory muscle use. Clear to auscultation. Breath sounds equal bilaterally. GASTROINTESTINAL: Abdomen soft, non-tender, nondistended. Hepatic and splenic margins not palpable. MUSCULOSKELETAL: Extremities without clubbing, cyanosis, or edema. No obvious deformities. Right groin is stable NEUROLOGICAL: Awake and alert. No obvious cranial nerve deficits. Motor grossly within normal limits. Five out of 5 muscle strength in the arms and legs. Normal speech. PSYCHIATRIC: Appropriate mood and affect; insight and judgment normal. Hospital Course Patient is a 61-year-old male who presented to the emergency department with chest pain. Was found to have a ST elevation AL and was taken to the cardiac Veterinary Technician Assistant by Dr. Cruz had a bare-metal stent placed in his proximal RCA. We have now been asked to help with his medical management. Patient has a history of peripheral art arterial disease followed by Dr. Landon as well as cervical and lumbar disease followed by Dr. Felipe. Has chronic pain medications that are followed by Dr. Browning 5- adjust meds dc iv fluids dw RN AND PT STILL HAVING BACK PAIN AND PAIN BUT THIS IS A CHRONIC CONDITION STOP IV FLUIDS AM LABS IF NOT DCED TODAY Await cardiac clearance discharge next 24-48 hour HAS ELEVATED TRIGLYCERIDES TROPONINS ARE STILL TRENDING UP DC IS ON HOLD FOR TODAY 5 TROPONINS ARE TRENDING DOWN NO CHEST PAIN DC TO HOME TODAY NEEDS TO FOLLOW UP WITH PCP AND CARDIOLOGY DC TO HOME TODAY CONTINUE SMOKING CESSATION Pt Condition on Discharge: Good Discharge Disposition: Discharge Home Discharge Time: > 30 minutes Discharge Instructions DIET: Follow Instructions for: Heart Healthy Diet, Diabetic Diet Speech Therapy-Diet Recommends: Regular Activities you can perform: Shower Only-No Bath Follow up Referrals: Cardiology, Interventional - 2 Weeks with Konstantin Cruz MD PCP Follow-up - 3-5 Days with Brian Browning MD New Medications: Atorvastatin (Lipitor) 40 Mg Tab 40 MG PO HS for Cholesterol Management, #30 TAB 0 Refills Aspirin (Tgt Aspirin) 81 Mg Chw 162 MG PO DAILY for Blood Clot Prevention, #30 EA Carvedilol (Coreg) 3.125 Mg Tab 3.125 MG PO BID for Blood Pressure Management, #60 TAB Niacin ER (Niaspan) 500 Mg Tab 500 MG PO HS for Cholesterol Management, #30 TAB Pantoprazole (Pantoprazole) 40 Mg Tab 40 MG PO Q24H for Manage Heartburn, #30 TAB Prasugrel (Effient) 10 Mg Tab 10 MG PO DAILY for Blood Clot Prevention, #30 TAB Ramipril (Ramipril) 2.5 Mg Cap 2.5 MG PO DAILY for Blood Pressure Management, #30 CAP Continued Medications: Hydrocodone-Acetaminophen ([place]) 10-325 Mg Tab 1 TAB PO Q6H PRN for PAIN, TAB 0 Refills Ibuprofen (Ibuprofen) 400 Mg Tab 400 MG PO Q6H PRN for PAIN SCALE 1 TO 5, TAB 0 Refills Gabriele Young DO October 13, 2017 10:11
[2017-10-13 10:17] LABS: AUTOMATED NEUTROPHIL # 6.9 TH/MM3 (1.8-7.7); BASOPHIL # 0.1 TH/MM3 (0-0.2); BASOPHIL % 0.7 % (0.0-2.0); EOSINOPHIL # 0.4 TH/MM3 (0-0.4); EOSINOPHIL % 3.5 % (0.0-4.0); HEMATOCRIT 41.5 % (39.0-51.0); HEMOGLOBIN 14.2 GM/DL (13.0-17.0); LYMPHOCYTE # 2.2 TH/MM3 (1.0-4.8); MEAN CELL VOLUME 85.5 FL (80.0-100.0); MEAN CORPUSCULAR HEMOGLOBIN 29.2 PG (27.0-34.0); MEAN CORPUSCULAR HGB CONC 34.1 % (32.0-36.0); MONOCYTE # 1.1 TH/MM3 (0-0.9); NEUT % 64.8 % (16.0-70.0); PLATELET COUNT 199 TH/MM3 (150-450); RED BLOOD COUNT 4.85 MIL/MM3 (4.50-5.90); RED CELL DISTRIBUTION WIDTH 15.6 % (11.6-17.2); WHITE BLOOD COUNT 10.7 TH/MM3 (4.0-11.0)
[2017-10-13 10:27] LABS: ALBUMIN 3.4 GM/DL (3.4-5.0); AST (GOT) 118 U/L (15-37); BICARBONATE 26.2 MEQ/L (21.0-32.0); BLOOD UREA NITROGEN 14 MG/DL (7-18); CALCIUM 8.8 MG/DL (8.5-10.1); CHLORIDE 99 MEQ/L (98-107); GLOMERULAR FILTRATION RATE 57 ML/MIN (>89); GLUCOSE,RANDOM 187 MG/DL (74-106); MAGNESIUM 2.3 MG/DL (1.5-2.5); SODIUM (NA) 134 MEQ/L (136-145)
[2017-10-13 10:29] LABS: ALT (GPT) 55 U/L (12-78); PHOSPHORUS 2.1 MG/DL (2.5-4.9)
[2017-10-13 10:31] LABS: ALKALINE PHOSPHATASE 59 U/L (45-117); TOTAL BILIRUBIN ADULT 1.5 MG/DL (0.2-1.0); TOTAL PROTEIN 6.7 GM/DL (6.4-8.2)
--- NOTE | 2017-10-13 11:07 | PQ ---
Physician Query Response Document PATIENT: JAN JACKSON : 1955 ADMIT DATE: 10/11/2017 4:53 PM DISCH DATE: RESPONDING PROVIDER #: MURPHY QUERY TEXT: CDS Clarification Opioid dependence, in the setting of chronic pain treated with oral Percocet Other explanation of clinical findings. Unable to determine (no explanation for clinical findings). The patient's Clinical Indicators include: The medical record reflects the following clinical findings, treatment, and risk factors. * Clinical Indicators; per Consult "Has chronic pain medications " " Back pain and pain but this is a chronic condiction" * Risk Factors: Chronic pain * Treatment: PO Percocet and IV Morphine Please clarify and document your clinical opinion in the progress notes and discharge summary includi ng the definitive and/or presumptive diagnosis (suspected or probable), related to the above clinical findings. Please include clinical findings supporting your diagnosis. Thank you, Sayda Montes CDS/RN ext. [phone] Query created by: Sayda Montes on 10/13/2017 10:21 AM RESPONSE TEXT: PATIENT HAS CHRONIC OPIOID DEPENDENCE AT HOME ON CHRONIC [place], HAS CHRONIC BACK AND NECK PAIN THAT W TREATED WITH PERCOCET AND MORPHINE WHILE HE WAS HERE IN THE HOSPITAL HAS CHRONIC PAIN AND CHRONIC OPIOID DEPENDENCE Electronically signed by: Jan Young 10/13/2017 11:03 AM
--- NOTE | 2017-10-13 19:40 | PD.CARD.PN ---
Subjective Subjective Remarks "i feel much better", denies chest pain Objective Vital Signs / I&O GENERAL: SKIN: Warm and dry. HEAD: Normocephalic. EYES: No scleral icterus. No injection or drainage. NECK: Supple, trachea midline. No JVD or lymphadenopathy. CARDIOVASCULAR: Regular rate and rhythm without murmurs, gallops, or rubs. RESPIRATORY: Breath sounds equal bilaterally. No accessory muscle use. GASTROINTESTINAL: Abdomen soft, non-tender, nondistended. MUSCULOSKELETAL: No cyanosis, or edema. BACK: Nontender without obvious deformity. No CVA tenderness. Vital Signs Date Time Temp Pulse Resp B/P (MAP) Pulse Ox O2 Delivery O2 Flow Rate FiO2 10/13/17 14:00 79 10/13/17 13:00 77 10/13/17 12:00 92 10/13/17 11:00 70 10/13/17 11:00 98.0 87 20 138/66 (90) 95 10/13/17 10:00 82 10/13/17 09:00 93 10/13/17 08:00 88 10/13/17 07:00 97.9 68 20 122/65 (84) 97 10/13/17 07:00 91 10/13/17 06:00 89 10/13/17 05:00 79 10/13/17 04:00 78 10/13/17 03:30 99.0 78 16 112/58 (76) 94 10/13/17 03:00 78 10/13/17 02:00 80 10/13/17 01:00 77 10/13/17 00:00 76 10/12/17 23:45 98.4 71 16 91/51 (64) 93 10/12/17 23:00 74 10/12/17 22:00 78 10/12/17 21:00 82 10/12/17 20:00 82 10/12/17 20:00 99.1 84 16 129/68 (88) 96 I/O 10/12/17 10/12/17 10/12/17 10/13/17 10/13/17 10/13/17 07:00 15:00 23:00 07:00 15:00 23:00 Intake Total 480 ml 480 ml 1080 ml 480 ml Output Total 1800 ml 1050 ml Balance -1320 ml 480 ml 30 ml 480 ml Intake Oral 480 ml 1080 ml 480 ml IV Total 480 ml Output Urine Total 1800 ml 1050 ml # Voids 1 4 # Bowel Movements 0 0 0 Physical Exam GENERAL: SKIN: Warm and dry. HEAD: Normocephalic. EYES: No scleral icterus. No injection or drainage. NECK: Supple, trachea midline. No JVD or lymphadenopathy. CARDIOVASCULAR: Regular rate and rhythm without murmurs, gallops, or rubs. RESPIRATORY: Breath sounds equal bilaterally. No accessory muscle use. GASTROINTESTINAL: Abdomen soft, non-tender, nondistended. MUSCULOSKELETAL: No cyanosis, or edema. BACK: Nontender without obvious deformity. No CVA tenderness. Laboratory Laboratory Tests Test 10/13/17 04:52 10/13/17 09:43 White Blood Count 12.4 TH/MM3 10.7 TH/MM3 Red Blood Count 5.24 MIL/MM3 4.85 MIL/MM3 Hemoglobin 15.2 GM/DL 14.2 GM/DL Hematocrit 44.6 % 41.5 % Mean Corpuscular Volume 85.0 FL 85.5 FL Mean Corpuscular Hemoglobin 28.9 PG 29.2 PG Mean Corpuscular Hemoglobin Concent 34.1 % 34.1 % Red Cell Distribution Width 15.7 % 15.6 % Platelet Count 228 TH/MM3 199 TH/MM3 Mean Platelet Volume 8.5 FL 9.0 FL Neutrophils (%) (Auto) 62.0 % 64.8 % Lymphocytes (%) (Auto) 22.3 % 21.0 % Monocytes (%) (Auto) 11.5 % 10.0 % Eosinophils (%) (Auto) 3.1 % 3.5 % Basophils (%) (Auto) 1.1 % 0.7 % Neutrophils # (Auto) 7.7 TH/MM3 6.9 TH/MM3 Lymphocytes # (Auto) 2.8 TH/MM3 2.2 TH/MM3 Monocytes # (Auto) 1.4 TH/MM3 1.1 TH/MM3 Eosinophils # (Auto) 0.4 TH/MM3 0.4 TH/MM3 Basophils # (Auto) 0.1 TH/MM3 0.1 TH/MM3 CBC Comment DIFF FINAL DIFF FINAL Differential Comment Phosphorus Level 2.6 MG/DL 2.1 MG/DL Magnesium Level 2.3 MG/DL 2.3 MG/DL Total Bilirubin 1.4 MG/DL 1.5 MG/DL Direct Bilirubin 0.3 MG/DL Indirect Bilirubin 1.1 MG/DL Aspartate Amino Transf (AST/SGOT) 146 U/L 118 U/L Alanine Aminotransferase (ALT/SGPT) 63 U/L 55 U/L Alkaline Phosphatase 66 U/L 59 U/L Total Creatine Kinase 642 U/L Creatine Kinase MB 19.5 NG/ML Creatine Kinase MB % 3.0 % Troponin I 20.70 NG/ML Total Protein 7.2 GM/DL 6.7 GM/DL Albumin 3.6 GM/DL 3.4 GM/DL Blood Urea Nitrogen 14 MG/DL Creatinine 1.30 MG/DL Random Glucose 187 MG/DL Calcium Level 8.8 MG/DL Sodium Level 134 MEQ/L Potassium Level 3.9 MEQ/L Chloride Level 99 MEQ/L Carbon Dioxide Level 26.2 MEQ/L Anion Gap 9 MEQ/L Estimat Glomerular Filtration Rate 57 ML/MIN Assessment and Plan Problem List: (1) CAD (coronary artery disease) ICD Codes: I25.10 - Atherosclerotic heart disease of [place] coronary artery without angina pectoris (2) PAD (peripheral artery disease) ICD Codes: I73.9 - Peripheral vascular disease, unspecified (3) Hypertension ICD Codes: I10 - Essential (primary) hypertension (4) Tobacco abuse ICD Codes: Z72.0 - Tobacco use (5) STEMI (ST elevation myocardial infarction) ICD Codes: I21.3 - ST elevation (STEMI) myocardial infarction of unspecified site Status: Acute (6) Hypercholesterolemia ICD Codes: E78.00 - Pure hypercholesterolemia, unspecified Assessment and Plan 1.) CAD/stemi - pod# 2 primary pci with bms prox rca - continue aspirin, effient , altace, coreg, lipitor, f/u lfts in am, ck/trop trending down, ekg with resolved st segments and chest pain has resolved; patient instructed to f/u with me in my office 10/14/17 and that noncompliance with aspirin and effient or plavix will lead to a life threatening stent thrombosis; he understands and states he will be compliant Problem Qualifiers (1) STEMI (ST elevation myocardial infarction): Qualified Codes: I21.3 - ST elevation (STEMI) myocardial infarction of unspecified site Konstantin Cruz MD October 13, 2017 19:40
[2017-10-13] MEDS ORDERED: NIACIN 500 MG EXTENDED RELEASE TAB PO SCH (21:00)
== END 2017-10-13 14:30 | disposition home or self-care (01) | DRG 249 ==
LOC: NEPC 15:24 → NEDA 16:53 → HCPC 18:00
PROVIDERS: ADMIT Hospitalist; ATTEND Hospitalist
PROC: 02703DZ Dilation of Coronary Artery, One Artery with Intraluminal Device, Percutaneous Approach (ICD-10-PCS; principal; 2017-10-11)
PROC: 4A023N7 Measurement of Cardiac Sampling and Pressure, Left Heart, Percutaneous Approach (ICD-10-PCS; 2017-10-11)
PROC: B2111ZZ Fluoroscopy of Multiple Coronary Arteries using Low Osmolar Contrast (ICD-10-PCS; 2017-10-11)
PROC: B2151ZZ Fluoroscopy of Left Heart using Low Osmolar Contrast (ICD-10-PCS; 2017-10-11)
DX: I21.19 ST elevation (STEMI) myocardial infarction involving other coronary artery of inferior wall (principal); E87.1 Hypo-osmolality and hyponatremia; I10 Essential (primary) hypertension; I73.9 Peripheral vascular disease, unspecified; M54.30 Sciatica, unspecified side; E78.5 Hyperlipidemia, unspecified; G89.29 Other chronic pain; M54.2 Cervicalgia; R73.9 Hyperglycemia, unspecified; I25.10 Atherosclerotic heart disease of native coronary artery without angina pectoris; E78.1 Pure hyperglyceridemia; E78.00 Pure hypercholesterolemia, unspecified; F43.10 Post-traumatic stress disorder, unspecified; Z87.891 Personal history of nicotine dependence
CPT/HCPCS: 71045; 80048; 80053; 80061; 80076; 82550; 82552; 82948; 83036; 83735; 84100; 84439; 84443; 84484; 85002; 85025; 85610; 85730; 92928; 93005; 93306; 93458; 96374; 99152; C1769; C1876; C1887; C1893; J1644; J2250; J2270; J3010; J3246; J7030; Q9967